=== PATIENT | female | born 1940 | race African-American/Black ===

== ENCOUNTER 2017-09-20 08:04 | Inpatient (IN) | payer MEDICARE ==
[2017-09-20] VITALS (9 sets, daily range): BP systolic 151–190; BP diastolic 67–91; PULSE 66–102; RESP 21–26; TEMP 94.8–100.6; O2SAT 93–95
[~2017-09-20] VITALS: Ht 167.6 cm; Wt 91.0 kg
[~2017-09-20 08:04] MED LIST: BACT800T5 PO; BRIM0.155 OP; CEPH500C3 PO; DORZ1SOL2 OU; DYAZ37.57 PO; FOSA70TA PO; LATA.005%O EACH EYE; MELO7.5T PO; NIFE60TA8 OR
[2017-09-20] MEDS ORDERED: SODIUM CHLORIDE 0.9% FLUSH 10 ML FLUSH IV FLUSH PRN ×2 (08:15→10:45)
--- NOTE | 2017-09-20 08:20 | PD ---
HPI Chief Complaint: Neuro Symptoms/ Deficits Time Seen by Provider: 08:11 Travel History International Travel<30 days: No Contact w/Intl Traveler<30days: No Traveled to known affect area: No History of Present Illness HPI 77-year-old female patient with previous history of hypertension, DVT, presents to the ER today brought in by EMS, apparently he had not been seen or heard from by family since Tuesday, and EMS got into her apartment, found her laying on the floor, unresponsive, apparently is arousable, facial asymmetry, disoriented, but able to respond to some questions. Patient is currently nonverbal in the ER but awake and alert, disoriented. Modifying Factors: None Associated Signs & Symptoms: Altered mental status, found on the floor Risk Factors: Elderly PFSH Past Medical History Cancer: Yes Diabetes: No Deep Vein Thrombosis: Yes (RIGHT LEG) Hepatitis: No Hiatal Hernia: No Hypertension: Yes Musculoskeletal: Yes (osteoperosis) Thyroid Disease: No ?: Not Past Surgical History Eye Surgery: Yes (bilateral eye cataract removal) Gynecologic Surgery: Yes (hysterectomy) Hysterectomy: Yes Pacemaker: No Other Surgery: Yes Social History Alcohol Use: No Tobacco Use: No Substance Use: No Allergies-Medications (Allergen,Severity, Reaction): Coded Allergies: No Known Allergies (Unverified Allergy, Unknown, 09/20/17) Reported Meds & Prescriptions Reported Meds & Active Scripts Active Reported Dorzolamide-Timolol Opth Drops 22.3-6.8 Mg/Ml Soln 1 Drop EACH EYE BID Brimonidine Opth Drops (Brimonidine Tartrate) 0.2% Soln 1 Drop EACH EYE Q12HR Nifedipine ER 24 HR (Nifedipine) 60 Mg Tab 60 Mg PO DAILY Fosamax (Alendronate Sodium) 70 Mg Tab 70 Mg PO WEEKLY Lisinopril 40 Mg Tab 40 Mg PO DAILY Latanoprost Opth Drops (Latanoprost) 0.005% Drops 1 Drop EACH EYE HS Refrigerate until opened. Eliquis (Apixaban) 5 Mg Tab 5 Mg PO BID Review of Systems ROS Limitations: Altered Mental Status Physical Exam Narrative GENERAL: Well-developed elderly -[place] female patient currently in moderate distress. Awake, nonverbal, disoriented. SKIN: Focused skin assessment warm/dry. HEAD: Atraumatic. Normocephalic. EYES: Pupils equal and round. No scleral icterus. No injection or drainage. ENT: No nasal bleeding or discharge. Mucous membranes pink and moist. NECK: Trachea midline. No JVD. CARDIOVASCULAR: Regular rate and rhythm. No murmur appreciated. RESPIRATORY: No accessory muscle use. Clear to auscultation. Breath sounds equal bilaterally. GASTROINTESTINAL: Abdomen soft, non-tender, nondistended. Hepatic and splenic margins not palpable. MUSCULOSKELETAL: No obvious deformities. No clubbing. No cyanosis. No edema. NEUROLOGICAL: Awake and alert, disoriented. Not following commands. PSYCHIATRIC: Disoriented, unable to evaluate Data Data Last Documented VS Vital Signs Date Time Temp Pulse Resp B/P (MAP) Pulse Ox O2 Delivery O2 Flow Rate FiO2 09/20/17 09:50 98.2 73 24 190/91 (124) 95 Room Air Orders Orders Electrocardiogram (09/20/17 08:11) Ammonia (09/20/17 08:11) Complete Blood Count With Diff (09/20/17 08:11) Comprehensive Metabolic Panel (09/20/17 08:11) Creatine Kinase (Cpk) (09/20/17 08:11) Prothrombin Time / Inr (Pt) (09/20/17 08:11) Act Partial Throm Time (Ptt) (09/20/17 08:11) Troponin I (09/20/17 08:11) Thyroid Stimulating Hormone (09/20/17 08:11) Urinalysis - C+S If Indicated (09/20/17 08:11) Lactic Acid Sepsis Protocol (09/20/17 08:11) Blood Culture (09/20/17 08:11) Chest, Single Ap (09/20/17 08:11) Ct Brain W/O Iv Contrast(Rout) (09/20/17 08:11) Blood Glucose (09/20/17 08:11) Ecg Monitoring (09/20/17 08:11) Iv Access Insert/Monitor (09/20/17 08:11) Oximetry (09/20/17 08:11) Urinary Catheter Insert/Apply (09/20/17 08:11) Sodium Chloride 0.9% Flush (Ns Flush) (09/20/17 08:15) Drug Screen, Random Urine (09/20/17 08:11) Alcohol (Ethanol) (09/20/17 08:11) Urine Culture (09/20/17 08:26) Sodium Chlorid 0.9% 500 Ml Inj (Ns 500 M (09/20/17 09:15) CKMB (09/20/17 08:26) CKMB% (09/20/17 08:26) Sodium Chlor 0.9% 1000 Ml Inj (Ns 1000 M (09/20/17 09:45) Aspirin Supp (Aspirin Supp) (09/20/17 09:45) Admit Order (Ed Use Only) (09/20/17 10:32) Labs Laboratory Tests Test 09/20/17 08:20 09/20/17 08:26 Lactic Acid Level 3.9 mmol/L Ammonia LESS THAN 10 MCMOL/L White Blood Count 13.7 TH/MM3 Red Blood Count 5.56 MIL/MM3 Hemoglobin 15.0 GM/DL Hematocrit 45.9 % Mean Corpuscular Volume 82.6 FL Mean Corpuscular Hemoglobin 27.0 PG Mean Corpuscular Hemoglobin Concent 32.7 % Red Cell Distribution Width 13.1 % Platelet Count 214 TH/MM3 Mean Platelet Volume 8.2 FL Neutrophils (%) (Auto) 85.0 % Lymphocytes (%) (Auto) 8.4 % Monocytes (%) (Auto) 5.6 % Eosinophils (%) (Auto) 0.0 % Basophils (%) (Auto) 1.0 % Neutrophils # (Auto) 11.6 TH/MM3 Lymphocytes # (Auto) 1.1 TH/MM3 Monocytes # (Auto) 0.8 TH/MM3 Eosinophils # (Auto) 0.0 TH/MM3 Basophils # (Auto) 0.1 TH/MM3 CBC Comment DIFF FINAL Differential Comment Prothrombin Time 11.2 SEC Prothromb Time International Ratio 1.1 RATIO Activated Partial Thromboplast Time 26.7 SEC Urine Color YELLOW Urine Turbidity CLEAR Urine pH 5.5 Urine Specific [place] 1.013 Urine Protein TRACE mg/dL Urine Glucose (UA) TRACE mg/dL Urine Ketones 10 mg/dL Urine Occult Blood SMALL Urine Nitrite NEG Urine Bilirubin NEG Urine Urobilinogen LESS THAN 2.0 MG/DL Urine Leukocyte Esterase NEG Urine RBC 5 /hpf Urine WBC LESS THAN 1 /hpf Urine Squamous Epithelial Cells <1 /hpf Urine Bacteria RARE /hpf Microscopic Urinalysis Comment CATH-CULTURE IND Blood Urea Nitrogen 18 MG/DL Creatinine 0.98 MG/DL Random Glucose 165 MG/DL Total Protein 8.5 GM/DL Albumin 4.0 GM/DL Calcium Level 10.2 MG/DL Alkaline Phosphatase 105 U/L Aspartate Amino Transf (AST/SGOT) 35 U/L Alanine Aminotransferase (ALT/SGPT) 18 U/L Total Bilirubin 0.5 MG/DL Sodium Level 141 MEQ/L Potassium Level 3.9 MEQ/L Chloride Level 108 MEQ/L Carbon Dioxide Level 21.2 MEQ/L Anion Gap 12 MEQ/L Estimat Glomerular Filtration Rate 66 ML/MIN Total Creatine Kinase 1125 U/L Creatine Kinase MB 17.1 NG/ML Creatine Kinase MB % 1.5 % Troponin I 0.44 NG/ML Thyroid Stimulating Hormone 3rd Gen 0.432 uIU/ML Urine Opiates Screen NEG Urine Barbiturates Screen NEG Urine Amphetamines Screen NEG Urine Benzodiazepines Screen NEG Urine Cocaine Screen NEG Urine Cannabinoids Screen NEG Ethyl Alcohol Level 4 MG/DL MDM Medical Decision Making Medical Screen Exam Complete: Yes Emergency Medical Condition: Yes Medical Record Reviewed: Yes Interpretation(s) Laboratory Tests Test 09/20/17 08:20 09/20/17 08:26 Lactic Acid Level 3.9 mmol/L (0.4-2.0) Ammonia LESS THAN 10 MCMOL/L White Blood Count 13.7 TH/MM3 (4.0-11.0) Red Blood Count 5.56 MIL/MM3 (4.00-5.30) Neutrophils (%) (Auto) 85.0 % (16.0-70.0) Lymphocytes (%) (Auto) 8.4 % (9.0-44.0) Neutrophils # (Auto) 11.6 TH/MM3 (1.8-7.7) Urine Ketones 10 mg/dL (NEG) Urine Occult Blood SMALL (NEG) Urine RBC 5 /hpf (0-3) Urine Bacteria RARE /hpf (NONE) Random Glucose 165 MG/DL (74-106) Total Protein 8.5 GM/DL (6.4-8.2) Calcium Level 10.2 MG/DL (8.5-10.1) Chloride Level 108 MEQ/L (98-107) Estimat Glomerular Filtration Rate 66 ML/MIN (>89) Total Creatine Kinase 1125 U/L (26-192) Creatine Kinase MB 17.1 NG/ML (0.5-3.6) Troponin I 0.44 NG/ML (0.02-0.05) Last [address] 09/20/17810 Signed Impressions: Service Date/Time: Wednesday, September 20, 2017 08:41 - CONCLUSION: 1. Findings consistent with subacute left MCA territory infarction with hyperdense left MCA suggesting left MCA thrombus. No significant hemorrhage or herniation at this time. Clem Arreguin MD Chest X-Ray 09/20/17810 Signed Impressions: Service Date/Time: Wednesday, September 20, 2017 08:32 - CONCLUSION: 1. Probable hiatal hernia. 2. No acute cardiopulmonary disease. Clem Arreguin MD Differential Diagnosis Altered mental status, found down: ICH versus CVA versus metabolic issues versus dehydration versus sepsis Narrative Course Patient's dentures were removed in the ER. She does have an intact gag reflex. However, at this point we would maintain n.p.o. status until swallowing study can be done. CAT scan shows signs of a left MCA infarct which is subacute. IV fluids and as needed aspirin was given. Lab work shows elevated lactate levels , possibly secondary to dehydration, white count is elevated. However, patient' s not having any fevers. Case was discussed with Dr. Barnes for admission for further treatment. Case was also discussed with Dr. Mcgregor of neurology who states that she will consult on the case. Patient is well beyond TPA window. Aggregate critical care time was 35 minutes. Time to perform other separately billable procedures was not included in the critical care time. My time did not include minutes spent treating any other patients simultaneously or on activities that did not directly contribute to the patient's treatment. The services I provided to this patient were to treat and/or prevent clinically significant deterioration that could result in: ICH, herniation, I provided critical care services requiring my management, as noted below: Chart data review, documentation time, medication orders and management, vital sign assessments/reviewing monitor data, ordering and reviewing lab tests, ordering and interpreting/reviewing x-rays and diagnostic studies, care of the patient and discussion of the patient with the admitting physicians. Diagnosis Primary Impression: CVA (cerebral vascular accident) Additional Impression: Rhabdomyolysis Admitting Information Admitting Physician Requests: Admit Meño Lopez MD Sep 20, 2017 08:20
[2017-09-20 08:45] LABS: AUTOMATED NEUTROPHIL # 11.6 TH/MM3 (1.8-7.7); BASOPHIL # 0.1 TH/MM3 (0-0.2); HEMATOCRIT 45.9 % (35.0-46.0); LYMPH % 8.4 % (9.0-44.0); LYMPHOCYTE # 1.1 TH/MM3 (1.0-4.8); MEAN CELL VOLUME 82.6 FL (80.0-100.0); MEAN CORPUSCULAR HGB CONC 32.7 % (32.0-36.0); MEAN PLATELET VOLUME 8.2 FL (7.0-11.0); MONO % 5.6 % (0.0-8.0); MONOCYTE # 0.8 TH/MM3 (0-0.9); PLATELET COUNT 214 TH/MM3 (150-450); RED BLOOD COUNT 5.56 MIL/MM3 (4.00-5.30); RED CELL DISTRIBUTION WIDTH 13.1 % (11.6-17.2); WHITE BLOOD COUNT 13.7 TH/MM3 (4.0-11.0)
[2017-09-20 08:51] LABS: BACTERIA, URINE RARE /hpf; BILIRUBIN, URINE NEG (NEG); BLOOD, URINE SMALL (NEG); GLUCOSE,URINE TRACE mg/dL (NEG); KETONE, URINE 10 mg/dL (NEG); NITRITE,URINE NEG (NEG); PH, URINE 5.5 (5.0-8.5); SQUAMOUS EPITHELIAL CELL URINE <1 /hpf (0-5); URINE COLOR YELLOW (YELLW/STRAW); URINE LEUKOCYTE ESTERASE NEG (NEG)
--- NOTE | 2017-09-20 08:52 | RADRPT ---
EXAM DATE/TIME: 09/20/2017 08:32 [facility] COMPARISON: No previous studies available for comparison. INDICATIONS : Syncope. MEDICAL HISTORY : None. SURGICAL HISTORY : None. ENCOUNTER: Initial ACUITY: 1 day PAIN SCORE: Non-responsive. LOCATION: Bilateral chest FINDINGS: Single view of the chest demonstrates no significant focal pleural or parenchymal opacities. Retrocar diac opacity likely reflects a hiatal hernia. The cardiomediastinal contours are unremarkable. [place] us structures are intact. CONCLUSION: 1. Probable hiatal hernia. 2. No acute cardiopulmonary disease. Clem Arreguin MD on September 20, 2017 at 8:50 Board Certified Radiologist. This report was verified electronically.
[2017-09-20 08:55] LABS: INTERNATIONAL NORMALIZED RATIO 1.1 RATIO; PROTHROMBIN TIME - PATIENT 11.2 SEC (9.8-11.6)
--- NOTE | 2017-09-20 09:03 | RADRPT ---
EXAM DATE/TIME: 09/20/2017 08:41 [facility] COMPARISON: No previous studies available for comparison. INDICATIONS : Found on floor, right side weakness, left side gaze RADIATION DOSE: 56.35 CTDIvol (mGy) MEDICAL HISTORY : Hypertension. SURGICAL HISTORY : Hysterectomy. ENCOUNTER: Initial ACUITY: 1 day PAIN SCALE: Non-responsive LOCATION: cranial TECHNIQUE: Multiple contiguous axial images were obtained of the head. Using automated exposure control and adj ustment of the mA and/or kV according to patient size, radiation dose was kept as low as reasonably a chievable to obtain optimal diagnostic quality images. DICOM format image data is available electro nically for review and comparison. FINDINGS: CEREBRUM: Examination is abnormal. There is loss of henderson-white matter differentiation in the left frontoparieta l mid to high convexities. There also are decreased densities in the left basal ganglia including the left caudate head. No significant hemorrhage or mass effect. The left MCA is hyperdense POSTERIOR FOSSA: The cerebellum and brainstem are intact. The 4th ventricle is midline. The cerebellopontine angle i s unremarkable. EXTRACRANIAL: The visualized portion of the orbits is intact. Partially imaged mucoperiosteal thickening and fluid in the left maxillary sinus. SKULL: The calvaria is intact. No evidence of skull fracture. CONCLUSION: 1. Findings consistent with subacute left MCA territory infarction with hyperdense left MCA suggestin g left MCA thrombus. No significant hemorrhage or herniation at this time. Clem Arreguin MD on September 20, 2017 at 8:52 Board Certified Radiologist. This report was verified electronically.
[2017-09-20 09:05] LABS: LACTIC ACID SEPSIS PROTOCOL 3.9 mmol/L (0.4-2.0)
[2017-09-20 09:09] LABS: AST (GOT) 35 U/L (15-37); BICARBONATE 21.2 MEQ/L (21.0-32.0); BLOOD UREA NITROGEN 18 MG/DL (7-18); CALCIUM 10.2 MG/DL (8.5-10.1); CHLORIDE 108 MEQ/L (98-107); CREATININE 0.98 MG/DL (0.50-1.00); GLOMERULAR FILTRATION RATE 66 ML/MIN (>89); GLUCOSE,RANDOM 165 MG/DL (74-106); SODIUM (NA) 141 MEQ/L (136-145)
[2017-09-20] MEDS ORDERED: SODIUM CHLORID 0.9% 500 ML INJ 500 ML IV ONE (09:15)
[2017-09-20 09:23] LABS: ALKALINE PHOSPHATASE 105 U/L (45-117); ALT (GPT) 18 U/L (10-53); TOTAL BILIRUBIN ADULT 0.5 MG/DL (0.2-1.0); TOTAL PROTEIN 8.5 GM/DL (6.4-8.2); TROPONIN I 0.44 NG/ML (0.02-0.05)
[2017-09-20] MEDS ORDERED: ASPIRIN 300 MG SUPP RECTAL ONE (09:45)
[2017-09-20] MEDS ORDERED: SODIUM CHLOR 0.9% 1000 ML INJ 1,000 ML IV ONE (09:45)
[2017-09-20] MEDS ORDERED: LATA0.002 EACH EYE (10:11)
[2017-09-20] MEDS ORDERED: APIX5TAB PO (10:11)
[2017-09-20] MEDS ORDERED: NIFE60TA58 PO (10:28)
[2017-09-20] MEDS ORDERED: FOSA70TA PO (10:28)
[2017-09-20] MEDS ORDERED: BRIM0.2S4 EACH EYE (10:28)
[2017-09-20] MEDS ORDERED: DORZ2SOL15 EACH EYE (10:28)
[2017-09-20] MEDS ORDERED: LISI40TA PO (10:28)
[2017-09-20] MEDS ORDERED: CHLORHEXIDINE GLUCONATE 2 % 1 PACK (2 CLOTHS) TOP PRN (10:45)
[2017-09-20] MEDS ORDERED: MISCELLANEOUS NURSING INFORMATION XX SCH (10:45)
[2017-09-20] MEDS: SODIUM CHLOR 0.9% 1000 ML INJ 1,000 ML IV SCH (12:54)
[2017-09-20] MEDS: ENOXAPARIN SODIUM 40 MG/0.4 ML SYRINGE SQ SCH (12:55)
--- NOTE | 2017-09-20 14:39 | HHI.HP ---
HPI Service Critical Care Medicine Primary Care Physician Nelsy Allen MD Admission Diagnosis Subacute CVA/rhabdomyolysis Diagnosis: Chief Complaint: Altered mental status Travel History International Travel<30 Days: No Contact w/Intl Traveler <30 Da: No Traveled to Known Affected Are: No History of Present Illness HPI 77-year-old female with a medical history significant for hypertension, DVT who was found laying on the floor unresponsive at home with facial asymmetry though was minimally arousable. She was last known to be okay the night before presentation. Patient was found to have right-sided weakness. Head CT done in the ER revealed left MCA territory ischemic infarct which appeared to be subacute in nature. Patient was accepted for admission by critical care medicine service. She was not felt to be a candidate for TPA or IR intervention due to unknown time of onset of symptoms. When I evaluated patient in the ER she was laying in the ER stretcher, opening her eyes to command however nonverbal. PFSH Past Medical History Cancer: Yes Diabetes: No Deep Vein Thrombosis: Yes (RIGHT LEG) Hepatitis: No Hiatal Hernia: No Hypertension: Yes Musculoskeletal: Yes (osteoporosis) Thyroid Disease: No ?: Not Past Surgical History Eye Surgery: Yes (bilateral eye cataract removal) Gynecologic Surgery: Yes (hysterectomy) Hysterectomy: Yes Pacemaker: No Other Surgery: Yes Social History Alcohol Use: No Tobacco Use: No Substance Use: No Allergies-Medications (Allergen,Severity, Reaction): Coded Allergies: No Known Allergies (Unverified Allergy, Unknown, 09/20/17) Reported Meds & Prescriptions Reported Meds & Active Scripts Active Reported Dorzolamide-Timolol Opth Drops 22.3-6.8 Mg/Ml Soln 1 Drop EACH EYE BID Brimonidine Opth Drops (Brimonidine Tartrate) 0.2% Soln 1 Drop EACH EYE Q12HR Nifedipine ER 24 HR (Nifedipine) 60 Mg Tab 60 Mg PO DAILY Fosamax (Alendronate Sodium) 70 Mg Tab 70 Mg PO WEEKLY Lisinopril 40 Mg Tab 40 Mg PO DAILY Latanoprost Opth Drops (Latanoprost) 0.005% Drops 1 Drop EACH EYE HS Refrigerate until opened. Eliquis (Apixaban) 5 Mg Tab 5 Mg PO BID Physical Exam Vital Signs Vital Signs Date Time Temp Pulse Resp B/P (MAP) Pulse Ox O2 Delivery O2 Flow Rate FiO2 09/20/17 14:00 79 21 157/71 (99) 94 Room Air 09/20/17 11:55 80 24 151/67 (95) 93 Room Air 09/20/17 09:50 98.2 73 24 190/91 (124) 95 Room Air 09/20/17 08:10 94.8 102 23 182/82 (115) 95 Room Air Physical Exam HEENT/Neuro: No pallor or icterus, tongue moist, pupils 3 mm bilaterally reacting actively to light, drowsy, opens eyes slightly to command, squeezes fingers with the right hand. Nonverbal, not moving right upper extremity with grade 0 pallor. Does move left upper extremity. Right lower extremity flaccid. Increased tone noted in left lower extremity. Chest/pulmonary: CTA bilaterally Cardiovascular: S1-S2 regular no gallop or murmur GI/abdomen: Soft, nontender, bowel sounds present Extremities: Warm bilaterally, no edema Laboratory Laboratory Tests Test 09/20/17 08:20 09/20/17 08:26 09/20/17 11:23 Lactic Acid Level 3.9 2.5 Ammonia LESS THAN 10 White Blood Count 13.7 Red Blood Count 5.56 Hemoglobin 15.0 Hematocrit 45.9 Mean Corpuscular Volume 82.6 Mean Corpuscular Hemoglobin 27.0 Mean Corpuscular Hemoglobin Concent 32.7 Red Cell Distribution Width 13.1 Platelet Count 214 Mean Platelet Volume 8.2 Neutrophils (%) (Auto) 85.0 Lymphocytes (%) (Auto) 8.4 Monocytes (%) (Auto) 5.6 Eosinophils (%) (Auto) 0.0 Basophils (%) (Auto) 1.0 Neutrophils # (Auto) 11.6 Lymphocytes # (Auto) 1.1 Monocytes # (Auto) 0.8 Eosinophils # (Auto) 0.0 Basophils # (Auto) 0.1 CBC Comment DIFF FINAL Differential Comment Prothrombin Time 11.2 Prothromb Time International Ratio 1.1 Activated Partial Thromboplast Time 26.7 Urine Color YELLOW Urine Turbidity CLEAR Urine pH 5.5 Urine Specific [place] 1.013 Urine Protein TRACE Urine Glucose (UA) TRACE Urine Ketones 10 Urine Occult Blood SMALL Urine Nitrite NEG Urine Bilirubin NEG Urine Urobilinogen LESS THAN 2.0 Urine Leukocyte Esterase NEG Urine RBC 5 Urine WBC LESS THAN 1 Urine Squamous Epithelial Cells <1 Urine Bacteria RARE Microscopic Urinalysis Comment CATH-CULTURE IND Blood Urea Nitrogen 18 Creatinine 0.98 Random Glucose 165 Total Protein 8.5 Albumin 4.0 Calcium Level 10.2 Alkaline Phosphatase 105 Aspartate Amino Transf (AST/SGOT) 35 Alanine Aminotransferase (ALT/SGPT) 18 Total Bilirubin 0.5 Sodium Level 141 Potassium Level 3.9 Chloride Level 108 Carbon Dioxide Level 21.2 Anion Gap 12 Estimat Glomerular Filtration Rate 66 Total Creatine Kinase 1125 Creatine Kinase MB 17.1 Creatine Kinase MB % 1.5 Troponin I 0.44 Thyroid Stimulating Hormone 3rd Gen 0.432 Urine Opiates Screen NEG Urine Barbiturates Screen NEG Urine Amphetamines Screen NEG Urine Benzodiazepines Screen NEG Urine Cocaine Screen NEG Urine Cannabinoids Screen NEG Ethyl Alcohol Level 4 Date/Time Source Procedure Growth Status 09/20/17 08:26 Blood Peripheral Aerobic Blood Culture Pending Received 09/20/17 08:26 Blood Peripheral Anaerobic Blood Culture Pending Received 09/20/17 08:26 Urine Catheterized Urine Urine Culture Pending Received Result Diagram: 09/20/1782509/20/17825 Imaging Last Impressions Head CT 09/20/17810 Signed Impressions: Service Date/Time: Wednesday, September 20, 2017 08:41 - CONCLUSION: 1. Findings consistent with subacute left MCA territory infarction with hyperdense left MCA suggesting left MCA thrombus. No significant hemorrhage or herniation at this time. Clem Arreguin MD Chest X-Ray 09/20/17810 Signed Impressions: Service Date/Time: Wednesday, September 20, 2017 08:32 - CONCLUSION: 1. Probable hiatal hernia. 2. No acute cardiopulmonary disease. Clem Arreguin MD Caprini VTE Risk Assessment Caprini VTE Risk Assessment: Mod/High Risk (score >= 2) Caprini Risk Assessment Model Point Value = 1 Point Value = 2 Point Value = 3 Point Value = 5 Age 41-60 Minor surgery BMI > 25 kg/m2 Swollen legs Varicose veins or History of unexplained or recurrent spontaneous Oral contraceptives or hormone replacement Sepsis (< 1 month) Serious lung disease, including pneumonia (< 1 month) Abnormal pulmonary function Acute myocardial infarction Congestive heart failure (< 1 month) History of inflammatory bowel disease Medical patient at bed rest Age 61-74 Arthroscopic surgery Major open surgery (> 45 min) Laparoscopic surgery (> 45 min) Malignancy Confined to bed (> 72 hours) Immobilizing plaster cast Central venous access Age >= 75 History of VTE Family history of VTE Factor V Leiden Prothrombin [id number] Lupus anticoagulant Anticardiolipin antibodies Elevated serum homocysteine Heparin-induced thrombocytopenia Other congenital or acquired thrombophilia Stroke (< 1 month) Elective arthroplasty Hip, pelvis, or leg fracture Acute spinal cord injury (< 1 month) Prophylaxis Regimen Total Risk Factor Score Risk Level Prophylaxis Regimen 0-1 Low Early ambulation 2 Moderate Order ONE of the following: *Sequential Compression Device (SCD) *Heparin 5000 units SQ BID 3-4 Higher Order ONE of the following medications: *Heparin 5000 units SQ TID *Enoxaparin/Lovenox 40 mg SQ daily (WT < 150 kg, CrCl > 30 mL/min) *Enoxaparin/Lovenox 30 mg SQ daily (WT < 150 kg, CrCl > 10-29 mL/min) *Enoxaparin/Lovenox 30 mg SQ BID (WT < 150 kg, CrCl > 30 mL/min) AND/OR *Sequential Compression Device (SCD) 5 or more Highest Order ONE of the following medications: *Heparin 5000 units SQ TID (Preferred with Epidurals) *Enoxaparin/Lovenox 40 mg SQ daily (WT < 150 kg, CrCl > 30 mL/min) *Enoxaparin/Lovenox 30 mg SQ daily (WT < 150 kg, CrCl > 10-29 mL/min) *Enoxaparin/Lovenox 30 mg SQ BID (WT < 150 kg, CrCl > 30 mL/min) AND *Sequential Compression Device (SCD) Assessment and Plan Assessment and Plan 77-year-old female with: Encephalopathy Ischemic stroke involving left MCA territory Rhabdomyolysis History of DVT Hypertension Plan: Neuro: Follow neuro status. Protecting airway currently who may require intubation if neurologic status worsens. Obtain MRI MRA brain for further evaluation of stroke. Neurology consult requested. Permissive hypertension in view of ischemic stroke. Will use labetalol as needed for systolic blood pressure greater than 210mm Hg, ASA 300mg rectally daily Cardiovascular: IV hydration, watch for hypotension. Permissive hypertension for ischemic stroke as above. Pulmonary: Supplemental O2, bronchodilators as needed. May require intubation for airway protection if neurologic status worsens. GI/liver: N.p.o. for now. May require NG tube/Dobbhoff for feeding/meds. Renal/: IV hydration, strict intake output, monitor and replete electrolytes, follow BN creatinine. Follow CPK ID: No indication for antibiotics at this time. Heme: On anticoagulation with Eliquis at home which is on hold currently until evaluation by neurology. Resume anticoagulation if okay with neurology. Prophylaxis: Lovenox for DVT prophylaxis, Pepcid for GI prophylaxis. Condition critical Time spent on critical care excluding procedures 45 minutes Cy Longoria MD Sep 20, 2017 14:39
--- NOTE | 2017-09-20 15:06 | MB ---
cc: Jazzmine Mcgregor MD DATE: 09/20/2017 REASON FOR CONSULTATION: Stroke. HISTORY OF PRESENT ILLNESS: This is a 77-year-old woman with history of hypertension, DVT, per daughter compliant with her anticoagulant of Eliquis, comes in because she had not been heard from the family since at least Tuesday. They found her lying on the floor unresponsive, arousable, with right-sided weakness. PAST MEDICAL HISTORY: Per chart notes and is not clear what of cancer, DVT right leg, osteoporosis. PAST SURGICAL HISTORY: Eye surgery, cataracts bilaterally removed, hysterectomy. SOCIAL HISTORY: Does not smoke, drink or use any illicit substances. ALLERGIES: NONE REPORTED. HOME MEDICINES: 1. Dorzolamide. 2. Timolol drops. 3. Brimonidine drops. 4. Nifedipine. 5. Fosamax. 6. Lisinopril. 7. Latanoprost. 8. Eliquis 5 mg b.i.d. PHYSICAL EXAMINATION: VITAL SIGNS: Temperature is 98.2, pulse 79, respiratory rate 21, blood pressure 157/71, saturating at 94% on room air. NECK: Supple, no bruits. HEART: Regular. NEUROLOGIC: She keeps her eyes closed but awakens with sternal rub. Follows simple commands with her left hand. Squeezes, lets go, wiggles her fingers. She is nonverbal. There may be a right facial asymmetry. She has a left gaze, as well as a left head turn. Decreased tone on right side. Minimal withdrawal of the right leg. No movement in the right arm. Right toe is upgoing. Sensory left side is intact. LABORATORY DATA: White count 13.7; platelets 214,000. Coag panel normal. Chemistries: Lactic acid 2.5. CK 1125. Troponin 0.44. GFR 66. TSH 0.432. Urine small occult blood. Culture is not indicated. Toxicology is negative. IMAGING STUDIES: Chest x-ray, possible hiatal hernia, no acute cardiopulmonary disease. CT head shows subacute left MCA infarct with hyperdense left MCA sign. No hemorrhage. No herniation noted. IMPRESSION: Left middle cerebral artery stroke. RECOMMENDATIONS: At this point in time are to do a complete stroke workup. Continue to monitor her neuro status closely. Recommend a repeat CT tomorrow morning stat. Should there be any change, she would need to be in an ICU setting. Continue close neurologic surveillance. We will get a carotid ultrasound, 2-D echo as well as MRI/MRA. If there is airway compromise, she will need to be intubated, and she will need a PT, OT, and speech therapy assessment. Keep her normal saline 70 mL an hour. Permissible hypertension. Possibly with this DVT, she may need another ultrasound of her lower extremity. As stroke looks fairly large, I am worried about putting her on anticoagulant, but if absolutely necessary, we could put her on very dose, no bolus heparin with careful watch of PTT and neuro status exam. Continue current care. MD MARVIN Avalos/PANCHO , 02:39 PM , 03:05 PM
--- NOTE | 2017-09-20 16:41 | RADRPT ---
EXAM DATE/TIME: 09/20/2017 16:00 [facility] COMPARISON: MRI BRAIN W/O CONTRAST, September 20, 2017, 16:00. CT BRAIN W/O CONTRAST, September 20, 2017, 8:41. INDICATIONS : Aphasia. MEDICAL HISTORY : Hypertension. SURGICAL HISTORY : Hysterectomy. ENCOUNTER: Initial ACUITY: 1 day PAIN SCORE: Nonresponsive. LOCATION: Head Please note a normal MRA of the brain does not entirely exclude the possibility of a small aneurysm, nor the possibility of distal intracranial vessel disease. TECHNIQUE: 3D time of flight MRA was performed. Source images, multiplanar STS MIP, and 3D volume MIP reconstru ctions were reviewed. FINDINGS: There is excellent visualization of the major intracranial arteries out to the second-order branch ve ssels. Loss of flow related enhancement is identified in the petrous and intracranial segment of the left in ternal carotid artery. No appreciable flow is identified in the left middle and anterior cerebral art stephanie distributions. The right cerebral circulation and vertebral basilar circulation remain intact. CONCLUSION: 1. Distal left ICA occlusion extending intracranially and involving the left anterior and middle cere bral arteries. 2. Intact right cerebral and vertebrobasilar circulation. Pedro Reveles MD on September 20, 2017 at 16:34 Board Certified Radiologist. This report was verified electronically.
--- NOTE | 2017-09-20 16:46 | RADRPT ---
EXAM DATE/TIME: 09/20/2017 16:00 [facility] COMPARISON: MRA BRAIN W/O CONTRAST, September 20, 2017, 16:00. INDICATIONS : Aphasia. MEDICAL HISTORY : Hypertension. SURGICAL HISTORY : Hysterectomy. ENCOUNTER: Initial ACUITY: 1 day PAIN SCORE: Nonresponsive. LOCATION: head TECHNIQUE: Multiplanar, multisequence MRI of the brain was performed without contrast. FINDINGS: A large area of restricted diffusion is identified in the left cerebral hemisphere involving the fron nabil, parietal and insular lobes. There is partial sparing of the left temporal lobe. The area restric cindy diffusion corresponds to the anterior and middle cerebral artery distributions. At least three qu arters of the middle cerebral artery distribution is affected. Cortical venous stasis is identified a long the cerebral hemisphere. There is no evidence of acute hemorrhage. The right cerebral hemisphere, brainstem and cerebellum remain unremarkable without evidence of restr icted diffusion, hemorrhage, mass or edema. CONCLUSION: 1. Large evolving infarct in the anterior and middle cerebral artery distributions as a consequence o f distal left ICA occlusion extending into the anterior and middle cerebral arteries. 2. No evidence of associated hemorrhage or significant mass effect. 3. Unremarkable right cerebral hemisphere, brainstem or cerebellum. Pedro Reveles MD on September 20, 2017 at 16:39 Board Certified Radiologist. This report was verified electronically.
[2017-09-20] MEDS: CHLORHEXIDINE GLUCONATE 2 % 1 PACK (2 CLOTHS) TOP SCH (19:37)
[2017-09-20] MEDS: FAMOTIDINE 20 MG/2 ML VIAL IV PUSH SCH (20:00)
[2017-09-20] MEDS: SODIUM CHLORIDE 0.9% FLUSH 10 ML FLUSH IV FLUSH SCH (20:00)
[2017-09-21] VITALS (12 sets, daily range): BP systolic 178–205; BP diastolic 74–82; PULSE 55–76; RESP 22–36; TEMP 98–100.6; O2SAT 94–97
[2017-09-21] MEDS: SODIUM CHLOR 0.9% 1000 ML INJ 1,000 ML IV SCH ×2 (01:16→12:46)
[2017-09-21 07:02] LABS: AUTOMATED NEUTROPHIL # 10.1 TH/MM3 (1.8-7.7); BASOPHIL # 0.1 TH/MM3 (0-0.2); BASOPHIL % 0.9 % (0.0-2.0); EOSINOPHIL # 0.1 TH/MM3 (0-0.4); EOSINOPHIL % 0.4 % (0.0-4.0); HEMATOCRIT 47.8 % (35.0-46.0); HEMOGLOBIN 15.2 GM/DL (11.6-15.3); LYMPH % 12.9 % (9.0-44.0); LYMPHOCYTE # 1.7 TH/MM3 (1.0-4.8); MEAN CELL VOLUME 84.4 FL (80.0-100.0); MEAN CORPUSCULAR HEMOGLOBIN 26.8 PG (27.0-34.0); MEAN CORPUSCULAR HGB CONC 31.8 % (32.0-36.0); MEAN PLATELET VOLUME 8.7 FL (7.0-11.0); MONO % 9.1 % (0.0-8.0); MONOCYTE # 1.2 TH/MM3 (0-0.9); NEUT % 76.7 % (16.0-70.0); PLATELET COUNT 182 TH/MM3 (150-450); RED BLOOD COUNT 5.67 MIL/MM3 (4.00-5.30); WHITE BLOOD COUNT 13.1 TH/MM3 (4.0-11.0)
[2017-09-21 07:45] LABS: ALBUMIN 3.4 GM/DL (3.4-5.0); ALKALINE PHOSPHATASE 88 U/L (45-117); ALT (GPT) 23 U/L (10-53); AST (GOT) 54 U/L (15-37); BLOOD UREA NITROGEN 15 MG/DL (7-18); CALCIUM 9.2 MG/DL (8.5-10.1); CHLORIDE 113 MEQ/L (98-107); CREATININE 0.82 MG/DL (0.50-1.00); GLOMERULAR FILTRATION RATE 81 ML/MIN (>89); GLUCOSE,RANDOM 109 MG/DL (74-106); PHOSPHORUS 2.1 MG/DL (2.5-4.9); SODIUM (NA) 143 MEQ/L (136-145); TOTAL BILIRUBIN ADULT 0.5 MG/DL (0.2-1.0); TOTAL PROTEIN 7.3 GM/DL (6.4-8.2)
[2017-09-21] MEDS: SODIUM CHLORIDE 0.9% FLUSH 10 ML FLUSH IV FLUSH SCH ×2 (09:00→21:00)
[2017-09-21] MEDS: FAMOTIDINE 20 MG/2 ML VIAL IV PUSH SCH ×2 (10:29→21:40)
[2017-09-21] MEDS: ASPIRIN 300 MG SUPP RECTAL SCH (10:29)
--- NOTE | 2017-09-21 10:33 | RADRPT ---
EXAM DATE/TIME: 09/21/2017 09:37 [facility] COMPARISON: No previous studies available for comparison. INDICATIONS : Ischemic stroke involving left MCA territory. MEDICAL HISTORY : Hypertension. Deep venous thrombosis. Osteoporosis. Rhabdomyolysis. Encephalopathy. SURGICAL HISTORY : Hysterectomy. Bilateral cataract extraction. ENCOUNTER: Initial ACUITY: 1 day PAIN SCORE: Nonresponsive. LOCATION: Bilateral neck PEAK SYSTOLIC VELOCITIES (cm/sec): ICA/CCA RATIO: Right: 1.0 Left: 0.6 ICA: Right: 113 Left: 61 CCA: Right: 117 Left: 106 ECA: Right: 109 Left: 173 VERTEBRAL: Right: 44 antegrade Left: 98 antegrade Elevated flow velocities and ICA/CCA ratios have been found to correlate with increased degrees of vessel stenosis, calculated as percentage of diameter relative to a normal segment of distal ICA/CCA FINDINGS: RIGHT CAROTID: No significant stenosis is visualized. The waveforms are within normal limits. LEFT CAROTID: No significant stenosis is visualized. The waveforms are within normal limits. VERTEBRAL ARTERIES: Antegrade flow is seen in both vertebral arteries. MISCELLANEOUS: None. CONCLUSION: Limited exam by patient habitus. Negative for hemodynamically significant stenosis. Alin Richard MD FACR on September 21, 2017 at 10:30 Board Certified Radiologist. This report was verified electronically.
--- NOTE | 2017-09-21 11:44 | HHI.PR ---
Subjective Remarks no new changes s/p mri and cus. pending repeat ct brain and echo results. Objective Vital Signs Date Time Temp Pulse Resp B/P (MAP) Pulse Ox O2 Delivery O2 Flow Rate FiO2 09/21/17 07:00 96 Room Air 09/21/17 06:00 64 09/21/17 04:00 99.0 60 22 186/78 (114) 94 09/21/17 04:00 60 09/21/17 02:00 70 09/21/17 00:00 70 09/21/17 00:00 99.9 70 26 185/78 (113) 95 09/20/17 22:00 66 09/20/17 20:00 76 09/20/17 20:00 100.6 76 24 178/73 (108) 95 09/20/17 19:00 95 Room Air 21 09/20/17 18:00 74 09/20/17 17:00 68 09/20/17 17:00 100.6 68 26 178/74 (108) 94 09/20/17 14:45 73 09/20/17 14:45 100.0 73 22 166/70 (102) 94 09/20/17 14:00 79 21 157/71 (99) 94 Room Air 09/20/17 14:00 09/20/17 11:55 80 24 151/67 (95) 93 Room Air I/O 09/20/17 09/20/17 09/20/17 09/21/17 09/21/17 09/21/17 07:00 15:00 23:00 07:00 15:00 23:00 Intake Total 813 ml Output Total 850 ml 400 ml 375 ml Balance -850 ml -400 ml 438 ml Intake IV Total 813 ml Output Urine Total 850 ml 400 ml 375 ml # Voids 0 # Bowel Movements 0 0 Result Diagram: 09/21/17 0529 09/21/17 0529 Imaging mri brain c/w large left mca infarct mra c/w left ica occlusion involving left ant and mca branches. cus neg echo-p ct =p Objective Remarks somnolent minimally arousable head and eyes turnes to left pupils 3mm-2mm. left side intact flaccid right right toe upgoing Assessment and Plan Assessment and Plan large left mca infarct -cont ac -d/w family the next 48hrs critical monitor ct for shift mass effect bleed may need intubation may need peg tube pt-ot st [facility] fluids Jazzmine Mcgregor MD Sep 21, 2017 11:44
[2017-09-21] MEDS: ENOXAPARIN SODIUM 40 MG/0.4 ML SYRINGE SQ SCH (12:46)
--- NOTE | 2017-09-21 14:51 | HHI.CCPN ---
Subjective Remarks/Hospital Course 09/20: 77-year-old female with a medical history significant for hypertension, DVT who was found laying on the floor unresponsive at home with facial asymmetry though was minimally arousable. She was last known to be okay the night before presentation. Patient was found to have right-sided weakness. Head CT done in the ER revealed left MCA territory ischemic infarct which appeared to be subacute in nature. Patient was accepted for admission by critical care medicine service. She was not felt to be a candidate for TPA or IR intervention due to unknown time of onset of symptoms. When I evaluated patient in the ER she was laying in the ER stretcher, opening her eyes to command however nonverbal. 09/21: Remains encephalopathic, arousable. Withdraws both lower extremities and upper extremities to pain. Objective Vital Signs Date Time Temp Pulse Resp B/P (MAP) Pulse Ox O2 Delivery O2 Flow Rate FiO2 09/21/17 10:00 58 09/21/17 08:00 98.0 24 178/74 (108) 97 09/21/17 07:00 Room Air 09/20/17 19:00 21 Intake and Output 09/21/17 09/21/17 09/22/17 08:00 16:00 00:00 Intake Total 813 ml Output Total 375 ml Balance 438 ml Result Diagram: 09/21/17 0529 09/21/17 0529 Imaging Last Impressions Carotid Artery Ultrasound 09/21/17 0000 Signed Impressions: Service Date/Time: Thursday, September 21, 2017 09:37 - CONCLUSION: Limited exam by patient habitus. Negative for hemodynamically significant stenosis. Alin Richard MD FACR Head CT 09/20/17810 Signed Impressions: Service Date/Time: Wednesday, September 20, 2017 08:41 - CONCLUSION: 1. Findings consistent with subacute left MCA territory infarction with hyperdense left MCA suggesting left MCA thrombus. No significant hemorrhage or herniation at this time. Clem Arreguin MD Chest X-Ray 09/20/17810 Signed Impressions: Service Date/Time: Wednesday, September 20, 2017 08:32 - CONCLUSION: 1. Probable hiatal hernia. 2. No acute cardiopulmonary disease. Clem Arreguin MD Head Magnetic Resonance Angiography 09/20/17 0000 Signed Impressions: Service Date/Time: Wednesday, September 20, 2017 16:00 - CONCLUSION: 1. Distal left ICA occlusion extending intracranially and involving the left anterior and middle cerebral arteries. 2. Intact right cerebral and vertebrobasilar circulation. Pedro Reveles MD Brain MRI 09/20/17 0000 Signed Impressions: Service Date/Time: Wednesday, September 20, 2017 16:00 - CONCLUSION: 1. Large evolving infarct in the anterior and middle cerebral artery distributions as a consequence of distal left ICA occlusion extending into the anterior and middle cerebral arteries. 2. No evidence of associated hemorrhage or significant mass effect. 3. Unremarkable right cerebral hemisphere, brainstem or cerebellum. Pedro Reveles MD Objective Remarks HEENT/Neuro: No pallor or icterus, tongue moist, pupils 2 mm bilaterally reacting actively to light, drowsy, not following commands. Nonverbal, Withdraws all 4 extremities with pain Chest/pulmonary: CTA bilaterally Cardiovascular: S1-S2 regular no gallop or murmur GI/abdomen: Soft, nontender, bowel sounds present Extremities: Warm bilaterally, no edema A/P Assessment and Plan 77-year-old female with: Encephalopathy Ischemic stroke involving left MCA territory Rhabdomyolysis History of DVT Hypertension Plan: Neuro: Follow neuro status. Protecting airway currently, may require intubation if neurologic status worsens. Neurology consult requested. Permissive hypertension in view of ischemic stroke. Will use labetalol as needed for systolic blood pressure greater than 210mm Hg, ASA 300mg rectally daily Cardiovascular: IV hydration, watch for hypotension. Permissive hypertension for ischemic stroke as above. Pulmonary: Supplemental O2, bronchodilators as needed. May require intubation for airway protection if neurologic status worsens. GI/liver: N.p.o. for now. May require NG tube/Dobbhoff for feeding/meds. Renal/: IV hydration, strict intake output, monitor and replete electrolytes, follow BN creatinine. Follow CPK ID: No indication for antibiotics at this time. Heme: On anticoagulation with Eliquis at home which is on hold currently until evaluation by neurology. Resume anticoagulation if okay with neurology. Prophylaxis: Lovenox for DVT prophylaxis, Pepcid for GI prophylaxis. Discussed with family regarding current clinical status and plan of care and they voiced understanding. I did explain that patient may require intubation for airway protection if neurologic status worsens. Cy Longoria MD Sep 21, 2017 14:51
--- NOTE | 2017-09-21 19:22 | ECHRPT ---
Indication: CVA/TIA CONCLUSIONS Normal left ventricular size. Wall thickness is normal. The left ventricular systolic function is normal with an estimated ejection fraction in the range of 60-65%. Moderate to severe mitral valve regurgitation. Mitral annular calcification is present. Aortic valve sclerosis is present. Mild aortic valve regurgitation. There is mild to moderate tricuspid regurgitation. The estimated pulmonary arterial pressure is 44 mmHg. BP: / HR: Rhythm: MEASUREMENTS (Male / Female) Normal Values Technical Quality: 2D ECHO LV Diastolic Diameter PLAX 4.5 cm 4.2 - 5.9 / 3.9 - 5.3 cm LV Systolic Diameter PLAX 3.5 cm IVS Diastolic Thickness 1.2 cm 0.6 - 1.0 / 0.6 - 0.9 cm LVPW Diastolic Thickness 0.9 cm 0.6 - 1.0 / 0.6 - 0.9 cm LV Relative Wall Thickness 0.5 RV Internal Dim ED PLAX 2.0 cm M-MODE Aortic Root Diameter MM 2.7 cm AV Cusp Separation MM 1.9 cm DOPPLER MR Peak Velocity 745.0 cm/s MR Peak Gradient 222.0 mmHg TR Peak Velocity 312.0 cm/s TR Peak Gradient 38.9 mmHg Right Atrial Pressure 5.0 mmHg Pulmonary Artery Systolic Pressu 43.9 mmHg Right Ventricular Systolic Press 43.9 mmHg FINDINGS LEFT VENTRICLE Normal left ventricular size. Wall thickness is normal. The left ventricular systolic function is normal with an estimated ejection fraction in the range of 60-65%. RIGHT VENTRICLE Normal right ventricular size and systolic function. LEFT ATRIUM The left atrial size is normal. RIGHT ATRIUM The right atrial size is normal. ATRIAL SEPTUM Normal atrial septal thickness without atrial level shunting by limited color doppler interrogation. AORTA The aortic root and proximal ascending aorta are normal in size on limited imaging. MITRAL VALVE Moderate to severe mitral valve regurgitation. Mitral annular calcification is present. AORTIC VALVE Aortic valve sclerosis is present. Mild aortic valve regurgitation. TRICUSPID VALVE There is mild to moderate tricuspid regurgitation. The estimated pulmonary arterial pressure is 44 mmHg. PULMONARY VALVE No pulmonary valve regurgitation or stenosis. VESSELS The inferior vena cava is normal in size. PERICARDIUM No pericardial effusion. Gisell Callaway MD, FACC (Electronically Signed) Final Date:21 September 2017 19:21
--- NOTE | 2017-09-21 22:03 | RADRPT ---
EXAM DATE/TIME: 09/21/2017 21:16 [facility] COMPARISON: CT BRAIN W/O CONTRAST, September 20, 2017, 8:41. INDICATIONS : Altered mental status. RADIATION DOSE: 45.65 CTDIvol (mGy) MEDICAL HISTORY : Hypertension. DVT. SURGICAL HISTORY : None. ENCOUNTER: Subsequent ACUITY: 2 days PAIN SCALE: Non-responsive LOCATION: cranial TECHNIQUE: Multiple contiguous axial images were obtained of the head. Using automated exposure control and adj ustment of the mA and/or kV according to patient size, radiation dose was kept as low as reasonably a chievable to obtain optimal diagnostic quality images. DICOM format image data is available electro nically for review and comparison. FINDINGS: Evolving left frontal stroke is present. There is moderate effacement of the regional cortical sulci. Effacement of sylvian fissure and slight compression of its lateral lateral ventricle. Minimal subfa lcine midline shift anteriorly. There is no evidence of macroscopic hemorrhage. The posterior fossa a nd brainstem structures are stable and unremarkable. The contralateral right hemisphere is stable and unremarkable. There is layering fluid in the left maxillary sinus as previously. CONCLUSION: Evolving left frontal stroke. Cameron Seaman MD on September 21, 2017 at 21:59 Board Certified Radiologist. This report was verified electronically.
--- NOTE | 2017-09-21 23:15 | EKG ---
Date Performed: 09/20/2017 Time Performed: 11:29:53 PTAGE: 77 years EKG: Sinus rhythm BORDERLINE LEFT AXIS DEVIATION BORDERLINE ECG Since the PREVIOUS TRACING , no significant change noted DOCTOR: Gisell Callaway Interpretating Date/Time 09/21/2017 23:14:46
--- NOTE | 2017-09-21 23:18 | EKG ---
Date Performed: 09/20/2017 Time Performed: 10:00:06 PTAGE: 77 years EKG: Sinus rhythm BORDERLINE LEFT AXIS DEVIATION ST DEVIATION AND MODERATE T-WAVE ABNORMALITY ABNORMAL ECG PREVIOUS TRACING : 04/08/2000 13.00 Since the previous tracing, no significant change noted DOCTOR: Gisell Callaway Interpretating Date/Time 09/29/2017 07:23:20
[2017-09-22] VITALS (12 sets, daily range): BP systolic 166–187; BP diastolic 73–89; PULSE 56–90; RESP 22–29; TEMP 98.6–101; O2SAT 96–97
[2017-09-22] MEDS: SODIUM CHLOR 0.9% 1000 ML INJ 1,000 ML IV SCH (02:35)
[2017-09-22] MEDS: CHLORHEXIDINE GLUCONATE 2 % 1 PACK (2 CLOTHS) TOP SCH (04:00)
--- NOTE | 2017-09-22 08:25 | HHI.CCPN ---
Subjective Remarks/Hospital Course 09/20: 77-year-old female with a medical history significant for hypertension, DVT who was found laying on the floor unresponsive at home with facial asymmetry though was minimally arousable. She was last known to be okay the night before presentation. Patient was found to have right-sided weakness. Head CT done in the ER revealed left MCA territory ischemic infarct which appeared to be subacute in nature. Patient was accepted for admission by critical care medicine service. She was not felt to be a candidate for TPA or IR intervention due to unknown time of onset of symptoms. When I evaluated patient in the ER she was laying in the ER stretcher, opening her eyes to command however nonverbal. 09/21: Remains encephalopathic, arousable. Withdraws both lower extremities and upper extremities to pain. 09/22: Drowsy, arousable. Squeezes with left hand and wiggles toes on command. Remains nonverbal. Objective Vital Signs Date Time Temp Pulse Resp B/P (MAP) Pulse Ox O2 Delivery O2 Flow Rate FiO2 09/22/17 06:00 56 09/22/17 04:00 100.2 25 187/79 (115) 96 09/21/17 19:00 Room Air 09/20/17 19:00 21 Intake and Output 09/22/17 09/22/17 09/23/17 08:00 16:00 00:00 Output Total 425 ml Balance -425 ml Result Diagram: 09/21/17 0529 09/21/17 0529 Imaging Last Impressions Carotid Artery Ultrasound 09/21/17 0000 Signed Impressions: Service Date/Time: Thursday, September 21, 2017 09:37 - CONCLUSION: Limited exam by patient habitus. Negative for hemodynamically significant stenosis. Alin Richard MD FACR Head CT 09/20/17 08 Signed Impressions: Service Date/Time: Wednesday, September 20, 2017 08:41 - CONCLUSION: 1. Findings consistent with subacute left MCA territory infarction with hyperdense left MCA suggesting left MCA thrombus. No significant hemorrhage or herniation at this time. Clem Arreguin MD Chest X-Ray 09/20/17810 Signed Impressions: Service Date/Time: Wednesday, September 20, 2017 08:32 - CONCLUSION: 1. Probable hiatal hernia. 2. No acute cardiopulmonary disease. Clme Arreguin MD Head Magnetic Resonance Angiography 09/20/17 0000 Signed Impressions: Service Date/Time: Wednesday, September 20, 2017 16:00 - CONCLUSION: 1. Distal left ICA occlusion extending intracranially and involving the left anterior and middle cerebral arteries. 2. Intact right cerebral and vertebrobasilar circulation. Pedro Reveles MD Brain MRI 09/20/17 0000 Signed Impressions: Service Date/Time: Wednesday, September 20, 2017 16:00 - CONCLUSION: 1. Large evolving infarct in the anterior and middle cerebral artery distributions as a consequence of distal left ICA occlusion extending into the anterior and middle cerebral arteries. 2. No evidence of associated hemorrhage or significant mass effect. 3. Unremarkable right cerebral hemisphere, brainstem or cerebellum. Pedro Reveles MD Objective Remarks HEENT/Neuro: No pallor or icterus, tongue moist, pupils 2 mm bilaterally reacting actively to light, drowsy, not following commands. Nonverbal, squeezes with left hand and wiggles toes. Decreased movement on right. Chest/pulmonary: CTA bilaterally Cardiovascular: S1-S2 regular no gallop or murmur GI/abdomen: Soft, nontender, bowel sounds present Extremities: Warm bilaterally, no edema A/P Assessment and Plan 77-year-old female with: Encephalopathy Ischemic stroke involving left MCA territory Rhabdomyolysis History of DVT Hypertension Plan: Neuro: Follow neuro status. Protecting airway currently, may require intubation if neurologic status worsens. Neurology consult requested. Permissive hypertension in view of ischemic stroke. Will use labetalol as needed for systolic blood pressure greater than 210mm Hg, ASA 300mg rectally daily Cardiovascular: IV hydration, watch for hypotension. Permissive hypertension for ischemic stroke as above. Pulmonary: Supplemental O2, bronchodilators as needed. May require intubation for airway protection if neurologic status worsens. GI/liver: Insert Dobbhoff for feeding/meds. Renal/: IV hydration, strict intake output, monitor and replete electrolytes, follow BN creatinine. Follow CPK ID: No indication for antibiotics at this time. Heme: On anticoagulation with Eliquis at home which is on hold currently until evaluation by neurology. Resume anticoagulation if okay with neurology. Prophylaxis: Lovenox for DVT prophylaxis, Pepcid for GI prophylaxis. Discussed with family regarding current clinical status and plan of care and they voiced understanding. I did explain that patient may require intubation for airway protection if neurologic status worsens. Cy Longoria MD Sep 22, 2017 08:25
[2017-09-22] MEDS: SODIUM CHLORIDE 0.9% FLUSH 10 ML FLUSH IV FLUSH SCH ×2 (09:00→21:00)
[2017-09-22] MEDS: ASPIRIN 300 MG SUPP RECTAL SCH (09:50)
[2017-09-22] MEDS: FAMOTIDINE 20 MG/2 ML VIAL IV PUSH SCH ×2 (09:50→21:11)
[2017-09-22] MEDS: ENOXAPARIN SODIUM 40 MG/0.4 ML SYRINGE SQ SCH (12:57)
[2017-09-22 13:07] LABS: ALBUMIN 2.8 GM/DL (3.4-5.0); ALKALINE PHOSPHATASE 71 U/L (45-117); ALT (GPT) 18 U/L (10-53); AST (GOT) 28 U/L (15-37); BICARBONATE 19.9 MEQ/L (21.0-32.0); BLOOD UREA NITROGEN 17 MG/DL (7-18); CALCIUM 9.2 MG/DL (8.5-10.1); CHLORIDE 117 MEQ/L (98-107); CREATININE 0.74 MG/DL (0.50-1.00); GLOMERULAR FILTRATION RATE 92 ML/MIN (>89); GLUCOSE,RANDOM 100 MG/DL (74-106); SODIUM (NA) 145 MEQ/L (136-145); TOTAL BILIRUBIN ADULT 0.5 MG/DL (0.2-1.0); TOTAL PROTEIN 6.4 GM/DL (6.4-8.2)
[2017-09-22] MEDS: hydrALAZINE HCL 20 MG/ML VIAL IV PUSH PRN (14:07)
--- NOTE | 2017-09-22 14:09 | RADRPT ---
EXAM DATE/TIME: 09/22/2017 13:39 [facility] COMPARISON: CHEST SINGLE AP, September 20, 2017, 8:32. INDICATIONS : Evaluate dobhoff placement MEDICAL HISTORY : Hypertension. DVT. SURGICAL HISTORY : None. ENCOUNTER: Initial ACUITY: 4 - 6 days PAIN SCORE: Non-responsive. LOCATION: Abdomen FINDINGS: The feeding type nasoenteric catheter tip overlies the region of the mid stomach. Air is seen through out the colon. No significant dilated loops of bowel. Rotary levoscoliosis of the lumbar spine. The CONCLUSION: 1. Dobbhoff feeding tube tip projecting over the mid stomach. Clem Arreguin MD on September 22, 2017 at 14:06 Board Certified Radiologist. This report was verified electronically.
[2017-09-23] VITALS (12 sets, daily range): BP systolic 170–208; BP diastolic 74–93; PULSE 61–124; RESP 20–29; TEMP 99–100.4; O2SAT 94–97
[2017-09-23] MEDS: CHLORHEXIDINE GLUCONATE 2 % 1 PACK (2 CLOTHS) TOP SCH (04:00)
[2017-09-23 04:36] LABS: AUTOMATED NEUTROPHIL # 8.3 TH/MM3 (1.8-7.7); BASOPHIL # 0.1 TH/MM3 (0-0.2); BASOPHIL % 0.6 % (0.0-2.0); EOSINOPHIL # 0.1 TH/MM3 (0-0.4); EOSINOPHIL % 0.7 % (0.0-4.0); HEMATOCRIT 41.2 % (35.0-46.0); HEMOGLOBIN 13.4 GM/DL (11.6-15.3); LYMPH % 14.6 % (9.0-44.0); LYMPHOCYTE # 1.6 TH/MM3 (1.0-4.8); MEAN CELL VOLUME 82.3 FL (80.0-100.0); MEAN CORPUSCULAR HEMOGLOBIN 26.8 PG (27.0-34.0); MEAN CORPUSCULAR HGB CONC 32.6 % (32.0-36.0); MEAN PLATELET VOLUME 8.4 FL (7.0-11.0); MONO % 10.9 % (0.0-8.0); MONOCYTE # 1.2 TH/MM3 (0-0.9); NEUT % 73.2 % (16.0-70.0); PLATELET COUNT 184 TH/MM3 (150-450); RED CELL DISTRIBUTION WIDTH 13.1 % (11.6-17.2); WHITE BLOOD COUNT 11.3 TH/MM3 (4.0-11.0)
[2017-09-23 04:51] LABS: ALBUMIN 2.8 GM/DL (3.4-5.0); AST (GOT) 26 U/L (15-37); BICARBONATE 21.5 MEQ/L (21.0-32.0); BLOOD UREA NITROGEN 23 MG/DL (7-18); CALCIUM 9.1 MG/DL (8.5-10.1); CHLORIDE 119 MEQ/L (98-107); CREATININE 0.82 MG/DL (0.50-1.00); GLOMERULAR FILTRATION RATE 81 ML/MIN (>89); GLUCOSE,RANDOM 143 MG/DL (74-106); SODIUM (NA) 147 MEQ/L (136-145)
[2017-09-23 04:54] LABS: ALKALINE PHOSPHATASE 71 U/L (45-117); ALT (GPT) 19 U/L (10-53); TOTAL BILIRUBIN ADULT 0.4 MG/DL (0.2-1.0); TOTAL PROTEIN 6.4 GM/DL (6.4-8.2)
[2017-09-23] MEDS: SODIUM CHLOR 0.9% 1000 ML INJ 1,000 ML IV SCH ×3 (05:46→21:29)
[2017-09-23] MEDS: SODIUM CHLORIDE 0.9% FLUSH 10 ML FLUSH IV FLUSH SCH ×2 (08:57→21:00)
--- NOTE | 2017-09-23 10:17 | HHI.CCPN ---
Subjective Remarks/Hospital Course 09/20: 77-year-old female with a medical history significant for hypertension, DVT who was found laying on the floor unresponsive at home with facial asymmetry though was minimally arousable. She was last known to be okay the night before presentation. Patient was found to have right-sided weakness. Head CT done in the ER revealed left MCA territory ischemic infarct which appeared to be subacute in nature. Patient was accepted for admission by critical care medicine service. She was not felt to be a candidate for TPA or IR intervention due to unknown time of onset of symptoms. When I evaluated patient in the ER she was laying in the ER stretcher, opening her eyes to command however nonverbal. 09/21: Remains encephalopathic, arousable. Withdraws both lower extremities and upper extremities to pain. 09/22: Drowsy, arousable. Squeezes with left hand and wiggles toes on command. Remains nonverbal. 09/23: Drowsy, easily arousable, has spontaneous eye opening today. Remains nonverbal. not moving right upper extremity. Tolerating tube feeds Via Dobbhoff. Objective Vital Signs Date Time Temp Pulse Resp B/P (MAP) Pulse Ox O2 Delivery O2 Flow Rate FiO2 09/23/17 10:00 75 09/23/17 08:00 99.9 28 193/79 (117) 95 09/23/17 07:00 Room Air 09/20/17 19:00 21 Intake and Output 09/23/17 09/23/17 09/24/17 08:00 16:00 00:00 Intake Total 1550 ml 0 ml Output Total 325 ml Balance 1225 ml 0 ml Result Diagram: 09/23/17 0337 09/23/17 0337 Imaging Last Impressions Carotid Artery Ultrasound 09/21/17 0000 Signed Impressions: Service Date/Time: Thursday, September 21, 2017 09:37 - CONCLUSION: Limited exam by patient habitus. Negative for hemodynamically significant stenosis. Alin Richard MD FACR Head CT 09/20/17 0811 Signed Impressions: Service Date/Time: Wednesday, September 20, 2017 08:41 - CONCLUSION: 1. Findings consistent with subacute left MCA territory infarction with hyperdense left MCA suggesting left MCA thrombus. No significant hemorrhage or herniation at this time. Clem Arreguin MD Chest X-Ray 09/20/17 0811 Signed Impressions: Service Date/Time: Wednesday, September 20, 2017 08:32 - CONCLUSION: 1. Probable hiatal hernia. 2. No acute cardiopulmonary disease. Clem Arreguin MD Head Magnetic Resonance Angiography 09/20/17 0000 Signed Impressions: Service Date/Time: Wednesday, September 20, 2017 16:00 - CONCLUSION: 1. Distal left ICA occlusion extending intracranially and involving the left anterior and middle cerebral arteries. 2. Intact right cerebral and vertebrobasilar circulation. Pedro Reveles MD Brain MRI 09/20/17 0000 Signed Impressions: Service Date/Time: Wednesday, September 20, 2017 16:00 - CONCLUSION: 1. Large evolving infarct in the anterior and middle cerebral artery distributions as a consequence of distal left ICA occlusion extending into the anterior and middle cerebral arteries. 2. No evidence of associated hemorrhage or significant mass effect. 3. Unremarkable right cerebral hemisphere, brainstem or cerebellum. Pedro Reveles MD Objective Remarks HEENT/Neuro: No pallor or icterus, tongue moist, pupils 2 mm bilaterally reacting actively to light, drowsy, not following commands. Nonverbal, squeezes with left hand and wiggles toes. Decreased movement on right. Chest/pulmonary: CTA bilaterally Cardiovascular: S1-S2 regular no gallop or murmur GI/abdomen: Soft, nontender, bowel sounds present Extremities: Warm bilaterally, no edema A/P Assessment and Plan 77-year-old female with: Encephalopathy Ischemic stroke involving left MCA territory Rhabdomyolysis History of DVT Hypertension Plan: Neuro: Follow neuro status. Protecting airway currently, may require intubation if neurologic status worsens. Neurology consult requested. Permissive hypertension in view of ischemic stroke. Will use labetalol as needed for systolic blood pressure greater than 210mm Hg, ASA changed to 325 mg daily. Repeat head CT on 09/24 to follow-up on ischemic stroke/cerebral edema. Cardiovascular: IV hydration, watch for hypotension. Permissive hypertension for ischemic stroke as above. Pulmonary: Supplemental O2, bronchodilators as needed. May require intubation for airway protection if neurologic status worsens. GI/liver: Dobbhoff for feeding/meds. Consult GI for evaluation for PEG tube early next week. Renal/: IV hydration, strict intake output, monitor and replete electrolytes, follow BN creatinine. Follow CPK ID: No indication for antibiotics at this time. Heme: On anticoagulation with Eliquis at home which is on hold currently until evaluation by neurology. Resume anticoagulation after PEG tube placement early next week if okay with neurology. Prophylaxis: Lovenox for DVT prophylaxis, Pepcid for GI prophylaxis. Discussed with family regarding current clinical status and plan of care and they voiced understanding. I did discuss need for PEG tube which patient's daughter is agreeable with. She wishes to continue aggressive care. Will consult palliative care to assist with deciding goals of therapy including CODE STATUS. Patient will probably require fdc placement. Case management consult to assist with discharge planning. We will consult and transfer to hospitalist service for further medical management starting 09/24, critical care will be signing off at this time. Please reconsult if needed. Cy Longoria MD Sep 23, 2017 10:17
[2017-09-23] MEDS: ASPIRIN 325 MG TAB PO SCH (10:58)
[2017-09-23] MEDS: FAMOTIDINE 20 MG/2 ML VIAL IV PUSH SCH ×2 (10:59→21:00)
[2017-09-23] MEDS: ENOXAPARIN SODIUM 40 MG/0.4 ML SYRINGE SQ SCH (11:00)
--- NOTE | 2017-09-23 12:55 | PD.CONS ---
HPI History of Present Illness This is a 77 year old with PMH significant for HTN and DVT on Eliquis at home who was brought to the ER after being found on the floor at home with facial asymmetry and right sided weakness. A brain MRI revealed large evolving infarct in the anterior and MCA distributions as a consequence of distal left ICU occlusion extending into the anterior and middle cerebral arteries. Pt was not a candidate for TPA or IR intervention given an unknown time from start of symptoms. She is currently in ICU, opens eyes to verbal stimuli but nonverbal. Given this, history was obtained through chart review. Our service has been consulted to evaluate patient for PEG tube placement. Currently has Dobbhoff with tube feeding running at 60 mL/hr. (Ashley Morales) PFSH Past Medical History HTN DVT CVA Osteoporosis Past Surgical History Hysterectomy Bilateral eye cataract removal (Ashley Morales) Coded Allergies: No Known Allergies (Unverified Allergy, Unknown, 09/20/17) Review of Systems Unable to obtain (Ashley Mroales) GI Exam Vitals I&O Vital Signs Date Time Temp Pulse Resp B/P (MAP) Pulse Ox O2 Delivery O2 Flow Rate FiO2 09/23/17 12:00 61 09/23/17 12:00 99.8 61 24 183/74 (110) 95 09/23/17 10:00 75 09/23/17 08:00 99.9 75 28 193/79 (117) 95 09/23/17 08:00 73 09/23/17 07:00 95 Room Air 09/23/17 06:00 70 09/23/17 04:00 70 09/23/17 04:00 100.4 70 24 189/76 (113) 94 09/23/17 02:00 62 09/23/17 00:00 100.3 72 20 170/74 (106) 95 09/23/17 00:00 72 09/22/17 22:00 63 09/22/17 20:00 90 09/22/17 20:00 101.0 90 27 179/79 (112) 96 09/22/17 20:00 96 Room Air 09/22/17 18:00 84 09/22/17 16:00 77 09/22/17 16:00 100.0 77 22 166/73 (104) 96 09/22/17 14:00 72 I/O 09/22/17 09/22/17 09/22/17 09/23/17 09/23/17 09/23/17 07:00 15:00 23:00 07:00 15:00 23:00 Intake Total 1550 ml 0 ml Output Total 425 ml 300 ml 325 ml Balance -425 ml -300 ml 1225 ml 0 ml Intake Oral 0 ml IV Total 1000 ml Tube Feeding 450 ml Other 100 ml Output Urine Total 425 ml 300 ml 325 ml # Bowel Movements 0 0 0 Imaging Last Impressions Abdomen X-Ray 09/22/17 0000 Signed Impressions: Service Date/Time: September 13:39 - CONCLUSION: 1. Dobbhoff feeding tube tip projecting over the mid stomach. Clem Arreguin MD Head CT 09/21/17 0000 Signed Impressions: Service Date/Time: Thursday, September 21, 2017 21:16 - CONCLUSION: Evolving left frontal stroke. Cameron Seaman MD Carotid Artery Ultrasound 09/21/17 0000 Signed Impressions: Service Date/Time: Thursday, September 21, 2017 09:37 - CONCLUSION: Limited exam by patient habitus. Negative for hemodynamically significant stenosis. Alin Richard MD FACR Chest X-Ray 09/20/17 0811 Signed Impressions: Service Date/Time: Wednesday, September 20, 2017 08:32 - CONCLUSION: 1. Probable hiatal hernia. 2. No acute cardiopulmonary disease. Clem Arreguin MD Head Magnetic Resonance Angiography 09/20/17 0000 Signed Impressions: Service Date/Time: Wednesday, September 20, 2017 16:00 - CONCLUSION: 1. Distal left ICA occlusion extending intracranially and involving the left anterior and middle cerebral arteries. 2. Intact right cerebral and vertebrobasilar circulation. Pedro Reveles MD Brain MRI 09/20/17 0000 Signed Impressions: Service Date/Time: Wednesday, September 20, 2017 16:00 - CONCLUSION: 1. Large evolving infarct in the anterior and middle cerebral artery distributions as a consequence of distal left ICA occlusion extending into the anterior and middle cerebral arteries. 2. No evidence of associated hemorrhage or significant mass effect. 3. Unremarkable right cerebral hemisphere, brainstem or cerebellum. Pedro Reveles MD Laboratory Test 09/23/17 03:37 White Blood Count 11.3 TH/MM3 Red Blood Count 5.00 MIL/MM3 Hemoglobin 13.4 GM/DL Hematocrit 41.2 % Mean Corpuscular Volume 82.3 FL Mean Corpuscular Hemoglobin 26.8 PG Mean Corpuscular Hemoglobin Concent 32.6 % Red Cell Distribution Width 13.1 % Platelet Count 184 TH/MM3 Mean Platelet Volume 8.4 FL Neutrophils (%) (Auto) 73.2 % Lymphocytes (%) (Auto) 14.6 % Monocytes (%) (Auto) 10.9 % Eosinophils (%) (Auto) 0.7 % Basophils (%) (Auto) 0.6 % Neutrophils # (Auto) 8.3 TH/MM3 Lymphocytes # (Auto) 1.6 TH/MM3 Monocytes # (Auto) 1.2 TH/MM3 Eosinophils # (Auto) 0.1 TH/MM3 Basophils # (Auto) 0.1 TH/MM3 CBC Comment DIFF FINAL Differential Comment Blood Urea Nitrogen 23 MG/DL Creatinine 0.82 MG/DL Random Glucose 143 MG/DL Total Protein 6.4 GM/DL Albumin 2.8 GM/DL Calcium Level 9.1 MG/DL Alkaline Phosphatase 71 U/L Aspartate Amino Transf (AST/SGOT) 26 U/L Alanine Aminotransferase (ALT/SGPT) 19 U/L Total Bilirubin 0.4 MG/DL Sodium Level 147 MEQ/L Potassium Level 3.5 MEQ/L Chloride Level 119 MEQ/L Carbon Dioxide Level 21.5 MEQ/L Anion Gap 7 MEQ/L Estimat Glomerular Filtration Rate 81 ML/MIN Total Creatine Kinase 246 U/L Creatine Kinase MB 1.8 NG/ML Creatine Kinase MB % 0.7 % Date/Time Source Procedure Growth Status 09/20/17 08:26 Blood Peripheral Aerobic Blood Culture - Preliminary NO GROWTH IN 3 DAYS Resulted 09/20/17 08:26 Blood Peripheral Anaerobic Blood Culture - Preliminary NO GROWTH IN 3 DAYS Resulted 09/20/17 08:26 Urine Catheterized Urine Urine Culture - Final NO GROWTH IN 48 HOURS. Complete Physical Examination HEENT: Normocephalic; atraumatic CHEST: Even/unlabored CARDIAC: RRR ABDOMEN: Obese, soft, bowel sounds active SKIN: Normal; no rash; no jaundice. SUPERVISOR HEADING: Opens eyes to verbal stimuli, nonverbal (Ashley Morales) Assessment and Plan Plan Assessment: - Consult for PEG tube placement- Found to be on floor at home with facial asymmetry and unilateral weakness. S/P brain MRI revealed large evolving infarct in the anterior and MCA distributions as a consequence of distal left ICU occlusion extending into the anterior and middle cerebral arteries. Pt was not a candidate for TPA or IR intervention given an unknown time from start of symptoms. History of DVT- On Eliquis at home, currently on hold- On Lovenox Currently TF, Jevity, through Dobbhoff at 60 mL/hr KUB (09/22) Nasoenteric catheter tip overlies the region of the mid stomach. Air is seen throughout the colon. No significant dilated loops of bowel. 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 Metzger and this note is written on her behalf (Ashley Morales) Physician Comments seen, examined agree with above (Cassidy Metzger MD) Ashley Morales Sep 23, 2017 12:55 Cassidy Metzger MD Sep 23, 2017 17:01
[2017-09-23] MEDS ORDERED: ceFAZolin 2 GM PREMIX 50 ML IV SCH (13:00)
--- NOTE | 2017-09-23 13:04 | PD.CONS ---
Consult Service Palliative Care . Consult Requested By Dr. Tonja Longoria . Primary Care Physician Nelsy Allen MD . Reason for Consultation a. To assist with evaluation and management of symptoms including: dysphagia , weakness. b. To assist medical decision maker(s) with: better understanding of current medical conditions; weighing benefits/burdens of medical treatment options; making medical treatment decisions. HPI History of Present Illness Ms. Cantu is a 77 year old female with past medical history of hypertension, DVT LE on Eliquis, osteoporosis and cancer. Upon review of EMR records: Dr. Norris has seen this patient for 3.9 x 2.5cm mass in medial posterior left lower lung with 2.2 cm posterior mediastinal lymph node suspicious for lung cancer, multiple tiny scattered lung nodules, 2.2 cm liver lesion suspicious for mets lung cancer. On 09/14/17,he recommended PET/CT scan and repeat LE ultrasound ( was supposed to be done 09/23, however she remains in ICU). Patient presented to [facility] emergency department of 09/20/17 after she was found minimally responsive on the floor at home with notable facial asymmetry, right sided weakness. She had been seen in normal state on 09/18/17. Review of initial ER findings: * VS: temp 98.2, pulse 73, resp 24, BP 190/91, oxygen sat 95% on room air. * WBC 13.7, hemoglobin 15, hematocrit 45.9, platelets 214, neutrophils 85% * Lactic acid 3.9 * PT 11.2, INR1.1, PTT 26.7 * Urinalysis - rare bacteria culture indicated - No growth in 48 hours. * Blood cultures negative at 3 days. * Total protein 8.5, albumin 4.0 * sodium 141, potassium 3.9, [id number], carbon dioxide 21.2, GFR 66, BUN 18, creatinine 0.98 * T. bili 0.5, AST 35, ALT 18, alk phos 105 * Toxicology screen: negative. * Ethyol alcohol - 4 * Total creatine kinase - 1125 * CK-MB 17.1, CK-MB % 1.5. * CT head - left MCA territory ischemic infarct. * Head MRA - distal left ICA occlusion extending intracranially and involving the left anterior and middle cerebral arteries, intact right cerebral and vertebrobasilar circulation. * Brain MRI - large evolving infarct in the anterior and middle cerebral artery due to distal left ICA occlusion extending into the anterior and middle cerebral arteries. No acute hemorrhage or mass effect. * CXR - probable hiatal hernia, no acute cardiopulmonary disease. Patient was admitted with left MCA ischemic stroke. Neurology, Dr. Mcgregor was consulted. Dobbhoff tube was placed for nutrition. Additional work up included: * Echocardiogram - EF 60-65%, moderate to severe mitral valve regurgitation, aortic valve sclerosis. * Carotid artery ultrasound: limited exam, negative for significant stenosis. * Repeat CT head on 09/21/17 - evolving left frontal stroke Patient has remained in ICU. Notes indicate she has been arousable, but drowsy. Nonverbal. She is able to follow simple commands on the left, not moving right side. Tolerating tube feeding. Will likely need PEG tube and will likely need penitentiary placement upon DC. Patient does not appear painful during my visit. She awakens briefly. She remains flaccid on right side. Spontaneous movement noted of left UE during my visit. Mildly labored respirations noted at rest. Palliative care was consulted to assist with clarification of medical treatment goals. Discussed with Dr. Longoria. . Function/Cognitive Trajectory Patient was living at home alone prior to admission. Her daughter lives 2 doors down and checks on her frequently. Patient has never driven a car, requires somebody to take her grocery shopping. Will occasionally take the bus to the grocery store. . Review of Systems ROS Limitations: Altered Mental Status (Drowsy, arouses briefly, nonverbal.) Constitutional: COMPLAINS OF: Fatigue, Weight loss, Change in appetite ( Decreased), Generalized weakness Eyes: COMPLAINS OF: Blurred vision (Wears glasses) Cardiovascular: COMPLAINS OF: Dyspnea on Exertion, Lower Extremity Edema ( Prior DVT) Hematologic/Lymphatics: COMPLAINS OF: Bruising Neurologic: COMPLAINS OF: Localized weakness, Poor Balance Other ROS: Patient unable to provide ROS, ROS per daughter's report. . Past Family Social History Coded Allergies: No Known Allergies (Unverified Allergy, Unknown, 09/20/17) Past Medical History DVT right LE Hypertension Osteoporosis Hiatal hernia Lung mass suspicious for lung cancer . Past Surgical History Bilateral Cataract removal Hysterectomy Varicose vein stripping (2014) . Reported Medications Reported Meds & Active Scripts Active Reported Dorzolamide-Timolol Opth Drops 22.3-6.8 Mg/Ml Soln 1 Drop EACH EYE BID Brimonidine Opth Drops (Brimonidine Tartrate) 0.2% Soln 1 Drop EACH EYE Q12HR Nifedipine ER 24 HR (Nifedipine) 60 Mg Tab 60 Mg PO DAILY Fosamax (Alendronate Sodium) 70 Mg Tab 70 Mg PO WEEKLY Lisinopril 40 Mg Tab 40 Mg PO DAILY Latanoprost Opth Drops (Latanoprost) 0.005% Drops 1 Drop EACH EYE HS Refrigerate until opened. Eliquis (Apixaban) 5 Mg Tab 5 Mg PO BID . Current Medications Medications (Trade) Dose Ordered Sig/Kathy Route Start Time Stop Time Status Last Admin Sodium Chloride 1,000 ml @ 70 mls/hr [id number] IV 09/20/17 12:00 09/23/17 07:11 (NS Flush) 2 ml UNSCH PRN IV FLUSH 09/20/17 10:45 (NS Flush) 2 ml BID IV FLUSH 09/20/17 21:00 09/23/17 08:57 (Pepcid Inj) 20 mg Q12HR IV PUSH 09/20/17 21:00 09/23/17 10:59 (Duoneb Neb) 1 ampule Q2HR NEB PRN INH 09/20/17 10:45 (Lovenox Inj) 40 mg Q24H SQ 09/20/17 12:00 09/23/17 11:00 Miscellaneous Information 1 [id number] XX 09/20/17 10:45 (Chlorhexidine 2% Cloth) 3 pack Taper DAILY@04 TOP 09/21/17 04:00 09/17/18 03:59 (Chlorhexidine 2% Cloth) 3 pack UNSCH PRN TOP 09/20/17 10:45 (Apresoline Inj) 5 mg Q30M PRN IV PUSH 09/21/17 22:00 09/22/17 14:07 (Aspirin) 325 mg DAILY PO 09/23/17 10:46 09/23/17 10:58 Family History Parents . Paternal grandparents . . Substance Use Tobacco: Smoked for 3 years, quit more than 50 years ago. Alcohol: None. Prescription med abuse:None Illicits:None . Psychosocial History . Has 1 son and 2 daughters. . Spiritual/Cultural Factors Pentecostalism loco. . Living Will: Never completed Health Care Surrogate: Never completed Durable Power of Transplant Nurse: Never completed Health Care Surrogate(s): Patient is not capacitated to make her own healthcare decisions, will not likely regain capacity given large MCA stroke. No written advanced directives. . According to [place] statutes, healthcare proxy decision making falls to the majority of adult children. Patient has 1 son and 2 daughters. . Documented care wishes: No written advanced directives. . Today's verbally stated goals: Patient is not capacitated to make her own healthcare decisions, will not likely regain capacity given large MCA stroke. . Family/friends goals: Goals remain aggressive at this time including proceeding with PEG tube placement and FULL CODE. Family is realistic and would not continue life prolonging measures/mechanical ventilation if patient's quality of life would not return to an acceptable level for her. At this time the family feels it would be too soon to transition to comfort focused care. . Ethical and Legal Issues Patient is not capacitated to make her own healthcare decisions, will not likely regain capacity given large MCA stroke. No written advanced directives. . According to [place] statutes, healthcare proxy decision making falls to the majority of adult children. Patient has 1 son and 2 daughters. Physical Exam Vital Signs Date Time Temp Pulse Resp B/P (MAP) Pulse Ox O2 Delivery O2 Flow Rate FiO2 09/23/17 12:00 61 09/23/17 12:00 99.8 61 24 183/74 (110) 95 09/23/17 10:00 75 09/23/17 08:00 99.9 75 28 193/79 (117) 95 09/23/17 08:00 73 09/23/17 07:00 95 Room Air 09/23/17 06:00 70 09/23/17 04:00 70 09/23/17 04:00 100.4 70 24 189/76 (113) 94 09/23/17 02:00 62 09/23/17 00:00 100.3 72 20 170/74 (106) 95 09/23/17 00:00 72 09/22/17 22:00 63 09/22/17 20:00 90 09/22/17 20:00 101.0 90 27 179/79 (112) 96 09/22/17 20:00 96 Room Air 09/22/17 18:00 84 09/22/17 16:00 77 09/22/17 16:00 100.0 77 22 166/73 (104) 96 09/22/17 14:00 72 09/23/17 09/24/17 19:00 07:00 Intake Total 0 ml Balance 0 ml Intake Oral 0 ml Exam CONSTITUTIONAL/GENERAL: This is an adequately nourished patient, in no apparent distress. TUBES/LINES/DRAINS: Dobbhoff, PIV right, Sullivan, SCDs. SKIN: No jaundice, rashes, or lesions. Ecchymoses on upper extremities. No wounds seen anteriorly. Skin temperature appropriate. Not diaphoretic. HEAD: Atraumatic. Normocephalic. EYES: Pupils equal and round and reactive. ENT: Unable to adequately assess hearing. Nose with Dobbhoff in place. Mouth closed. Drooling noted. NECK: Trachea midline. CARDIOVASCULAR: Regular rate and rhythm without murmurs, gallops, or rubs. No JVD. Peripheral pulses symmetric. RESPIRATORY/CHEST: Mildly labored respirations at rest. Some accessory muscle use noted. Clear to auscultation. GASTROINTESTINAL: Abdomen soft, nondistended. Bowel sounds present. GENITOURINARY: Without palpable bladder distension. Sullivan catheter in place, dark urine noted. MUSCULOSKELETAL: Extremities without clubbing, cyanosis, or edema. No mottling or clubbing. LYMPHATICS: No palpable cervical or supraclavicular adenopathy. NEUROLOGICAL: Arouses briefly, attempts to follow command with left hand. Non- verbal. No movement noted on right. Some spontaneous movement noted left UE. PSYCHIATRIC: No obvious anxiety/depression. no apparent hallucinations or other psychotic thought process. . Diagnostic Tests Laboratory Laboratory Tests Test 09/20/17 18:51 09/21/17 05:29 09/22/17 04:02 09/22/17 12:02 Nasal Screen MRSA (PCR) MRSA NOT DETECTED (NOT White Blood Count 13.1 TH/MM3 (4.0-11.0) Red Blood Count 5.67 MIL/MM3 (4.00-5.30) Hemoglobin 15.2 GM/DL (11.6-15.3) Hematocrit 47.8 % (35.0-46.0) Mean Corpuscular Volume 84.4 FL (80.0-100.0) Mean Corpuscular Hemoglobin 26.8 PG (27.0-34.0) Mean Corpuscular Hemoglobin Concent 31.8 % (32.0-36.0) Red Cell Distribution Width 13.0 % (11.6-17.2) Platelet Count 182 TH/MM3 (150-450) Mean Platelet Volume 8.7 FL (7.0-11.0) Neutrophils (%) (Auto) 76.7 % (16.0-70.0) Lymphocytes (%) (Auto) 12.9 % (9.0-44.0) Monocytes (%) (Auto) 9.1 % (0.0-8.0) Eosinophils (%) (Auto) 0.4 % (0.0-4.0) Basophils (%) (Auto) 0.9 % (0.0-2.0) Neutrophils # (Auto) 10.1 TH/MM3 (1.8-7.7) Lymphocytes # (Auto) 1.7 TH/MM3 (1.0-4.8) Monocytes # (Auto) 1.2 TH/MM3 (0-0.9) Eosinophils # (Auto) 0.1 TH/MM3 (0-0.4) Basophils # (Auto) 0.1 TH/MM3 (0-0.2) CBC Comment AUTO DIFF Differential Comment AUTO DIFF CONFIRMED Platelet Estimate NORMAL (NORMAL) Platelet Morphology Comment NORMAL (NORMAL) Blood Urea Nitrogen 15 MG/DL (7-18) 17 MG/DL (7-18) Creatinine 0.82 MG/DL (0.50-1.00) 0.74 MG/DL (0.50-1.00) Random Glucose 109 MG/DL (74-106) 100 MG/DL (74-106) Total Protein 7.3 GM/DL (6.4-8.2) 6.4 GM/DL (6.4-8.2) Albumin 3.4 GM/DL (3.4-5.0) 2.8 GM/DL (3.4-5.0) Calcium Level 9.2 MG/DL (8.5-10.1) 9.2 MG/DL (8.5-10.1) Phosphorus Level 2.1 MG/DL (2.5-4.9) Alkaline Phosphatase 88 U/L (45-117) 71 U/L (45-117) Aspartate Amino Transf (AST/SGOT) 54 U/L (15-37) 28 U/L (15-37) Alanine Aminotransferase (ALT/SGPT) 23 U/L (10-53) 18 U/L (10-53) Total Bilirubin 0.5 MG/DL (0.2-1.0) 0.5 MG/DL (0.2-1.0) Sodium Level 143 MEQ/L (136-145) 145 MEQ/L (136-145) Potassium Level 4.0 MEQ/L (3.5-5.1) 3.5 MEQ/L (3.5-5.1) Chloride Level 113 MEQ/L (98-107) 117 MEQ/L (98-107) Carbon Dioxide Level 21.0 MEQ/L (21.0-32.0) 19.9 MEQ/L (21.0-32.0) Anion Gap 9 MEQ/L (5-15) 8 MEQ/L (5-15) Estimat Glomerular Filtration Rate 81 ML/MIN (>89) 92 ML/MIN (>89) Total Creatine Kinase 838 U/L (26-192) 312 U/L (26-192) Creatine Kinase MB 7.5 NG/ML (0.5-3.6) 1.9 NG/ML (0.5-3.6) Creatine Kinase MB % 0.9 % (0.0-4.0) 0.6 % (0.0-4.0) Test 09/23/17 03:37 White Blood Count 11.3 TH/MM3 (4.0-11.0) Red Blood Count 5.00 MIL/MM3 (4.00-5.30) Hemoglobin 13.4 GM/DL (11.6-15.3) Hematocrit 41.2 % (35.0-46.0) Mean Corpuscular Volume 82.3 FL (80.0-100.0) Mean Corpuscular Hemoglobin 26.8 PG (27.0-34.0) Mean Corpuscular Hemoglobin Concent 32.6 % (32.0-36.0) Red Cell Distribution Width 13.1 % (11.6-17.2) Platelet Count 184 TH/MM3 (150-450) Mean Platelet Volume 8.4 FL (7.0-11.0) Neutrophils (%) (Auto) 73.2 % (16.0-70.0) Lymphocytes (%) (Auto) 14.6 % (9.0-44.0) Monocytes (%) (Auto) 10.9 % (0.0-8.0) Eosinophils (%) (Auto) 0.7 % (0.0-4.0) Basophils (%) (Auto) 0.6 % (0.0-2.0) Neutrophils # (Auto) 8.3 TH/MM3 (1.8-7.7) Lymphocytes # (Auto) 1.6 TH/MM3 (1.0-4.8) Monocytes # (Auto) 1.2 TH/MM3 (0-0.9) Eosinophils # (Auto) 0.1 TH/MM3 (0-0.4) Basophils # (Auto) 0.1 TH/MM3 (0-0.2) CBC Comment DIFF FINAL Differential Comment Blood Urea Nitrogen 23 MG/DL (7-18) Creatinine 0.82 MG/DL (0.50-1.00) Random Glucose 143 MG/DL (74-106) Total Protein 6.4 GM/DL (6.4-8.2) Albumin 2.8 GM/DL (3.4-5.0) Calcium Level 9.1 MG/DL (8.5-10.1) Alkaline Phosphatase 71 U/L (45-117) Aspartate Amino Transf (AST/SGOT) 26 U/L (15-37) Alanine Aminotransferase (ALT/SGPT) 19 U/L (10-53) Total Bilirubin 0.4 MG/DL (0.2-1.0) Sodium Level 147 MEQ/L (136-145) Potassium Level 3.5 MEQ/L (3.5-5.1) Chloride Level 119 MEQ/L (98-107) Carbon Dioxide Level 21.5 MEQ/L (21.0-32.0) Anion Gap 7 MEQ/L (5-15) Estimat Glomerular Filtration Rate 81 ML/MIN (>89) Total Creatine Kinase 246 U/L (26-192) Creatine Kinase MB 1.8 NG/ML (0.5-3.6) Creatine Kinase MB % 0.7 % (0.0-4.0) Result Diagram: 09/23/17 0337 09/23/17 0337 Microbiology Microbiology Date/Time Source Procedure Growth Status 09/20/17 08:26 Blood Peripheral Aerobic Blood Culture - Preliminary NO GROWTH IN 3 DAYS Resulted 09/20/17 08:26 Blood Peripheral Anaerobic Blood Culture - Preliminary NO GROWTH IN 3 DAYS Resulted 09/20/17 08:26 Urine Catheterized Urine Urine Culture - Final NO GROWTH IN 48 HOURS. Complete . Imaging Last Impressions Abdomen X-Ray 09/22/17 0000 Signed Impressions: Service Date/Time: September 13:39 - CONCLUSION: 1. Dobbhoff feeding tube tip projecting over the mid stomach. Clem Arreguin MD Head CT 09/21/17 0000 Signed Impressions: Service Date/Time: Thursday, September 21, 2017 21:16 - CONCLUSION: Evolving left frontal stroke. Cameron Seaman MD Carotid Artery Ultrasound 09/21/17 0000 Signed Impressions: Service Date/Time: Thursday, September 21, 2017 09:37 - CONCLUSION: Limited exam by patient habitus. Negative for hemodynamically significant stenosis. Alin Richard MD FACR Chest X-Ray 09/20/17 0811 Signed Impressions: Service Date/Time: Wednesday, September 20, 2017 08:32 - CONCLUSION: 1. Probable hiatal hernia. 2. No acute cardiopulmonary disease. Clem Arreguin MD Head Magnetic Resonance Angiography 09/20/17 0000 Signed Impressions: Service Date/Time: Wednesday, September 20, 2017 16:00 - CONCLUSION: 1. Distal left ICA occlusion extending intracranially and involving the left anterior and middle cerebral arteries. 2. Intact right cerebral and vertebrobasilar circulation. Pedro Reveles MD Brain MRI 09/20/17 0000 Signed Impressions: Service Date/Time: Wednesday, September 20, 2017 16:00 - CONCLUSION: 1. Large evolving infarct in the anterior and middle cerebral artery distributions as a consequence of distal left ICA occlusion extending into the anterior and middle cerebral arteries. 2. No evidence of associated hemorrhage or significant mass effect. 3. Unremarkable right cerebral hemisphere, brainstem or cerebellum. Pedro Reveles MD . Procedures * Dobbhoff placement . Patient/Family Conference Present at Family Conference: Spoke with daughter, Izzy Bruce via phone. Family Conference Time (mins): 35 Family Conference Location: Telephone Issues Discussed: * Palliative care role, purpose, approach * Additional medical, psychosocial, and spiritual history * Patients general health, functional status, and cognitive changes in the months leading up to the current hospitalization * Patient/family understanding of the current medical problems including possible malignancy, * Patient/family understanding of prognosis * Patients goals of care as best understood from conversations and/or values - No advanced directives. * Current medical treatment options and benefits/burdens of those options * Questions answered to the best of my ability * Palliative care contact information provided Assessment and Plan Disease Oriented Problem List: (1) Left acute arterial ischemic stroke, MCA (middle cerebral artery) (2) Dysphagia Comment: plan for PEG tube (3) Lung mass Comment: Dr. Norris has seen this patient for 3.9 x 2.5cm mass in medial posterior left lower lung with 2.2 cm posterior mediastinal lymph node suspicious for lung cancer, multiple tiny scattered lung nodules, 2.2 cm liver lesion suspicious for mets lung cancer. On 09/14/17,he recommended PET/CT scan and repeat LE ultrasound (was supposed to be done 09/23, however she remains in ICU). Symptom Scale: (1) Weakness 0-10 Scale: Unable to quantify (2) Dysphagia 0-10 Scale: Unable to quantify Pertinent Non-Medical Issues Psychosocial: . ! son and 2 daughters. Spiritual: Pentecostalism loco. Shakeel Bailey has been to visit patient. Daughter notified. Legal:Patient is not capacitated to make her own healthcare decisions, will not likely regain capacity given large MCA stroke. No written advanced directives. . According to [place] statutes, healthcare proxy decision making falls to the majority of adult children. Patient has 1 son and 2 daughters. Ethical issues impacting care: No known concerns at this time. . Important Contacts * Izzy Bruce, daughter: [phone] * Farhana Barboza, daughter: [phone] * Dillon Mejia, son: [phone] . Prognosis Ms. Barboza is a 77-year-old female admitted with large left MCA stroke. She was recently found to have lung mass, bilateral lung nodules and liver mass suspicious for lung cancer. She is high risk for aspiration and further decline. Life expectancy likely limited given her advanced age and current health problems. . Plan * Patient is not capacitated to make her own healthcare decisions, will not likely regain capacity given large MCA stroke. No written advanced directives. . According to [place] statutes, healthcare proxy decision making falls to the majority of adult children. Patient has 1 son (Dillon Mejia) and 2 daughters (Izzy Bruce and Farhana Barboza). * FULL CODE * Goals remain aggressive at this time including proceeding with PEG tube placement and FULL CODE. Family is realistic and would not continue life prolonging measures/mechanical ventilation if patient's quality of life would not return to an acceptable level for her. At this time the family feels it would be too soon to transition to comfort focused care. * SYMPTOMS: Dysphagia: has Dobbhoff in place, tolerating tube feeding. Plan for PEG tube in coming days. Weakness: due to possible mets lung cancer and recent large left MCA infarct. May be difficult for rehabilitation. * Palliative care number provided. * Palliative care will continue to follow to assist with symptom management, communication and further clarification of medical treatment goals as needed. . Thank you for the opportunity to participate in the care of Ms. Barboza. Attestation To help prompt me to consider important information that might be impacting today's encounter and assessment, information from prior notes written by myself or my colleagues may have been "brought forward" into today's note. My signature on this note, however, is an attestation that I personally performed the exam, history, and/or decision-making noted today, and, unless otherwise indicated, the interactions with patient, family, and staff as well as the review of records all occurred today. I also attest that the listed assessment and stated plan reflect my best clinical judgment today based on the combination of historical information, prior notes, and today's exam/ interactions. When time spent is documented, it refers only to time spent today by the signer, or if indicated, combined time spent today by collaborating physician/nurse practitioner. Latisha Gómez Sep 23, 2017 13:03
--- NOTE | 2017-09-23 15:30 | HHI.PR ---
Subjective Remarks S/P ng tube possible peg. not awake yet. not intubated. Objective Vital Signs Date Time Temp Pulse Resp B/P (MAP) Pulse Ox O2 Delivery O2 Flow Rate FiO2 09/23/17 14:00 73 09/23/17 12:00 61 09/23/17 12:00 99.8 61 24 183/74 (110) 95 09/23/17 10:00 75 09/23/17 08:00 99.9 75 28 193/79 (117) 95 09/23/17 08:00 73 09/23/17 07:00 95 Room Air 09/23/17 06:00 70 09/23/17 04:00 70 09/23/17 04:00 100.4 70 24 189/76 (113) 94 09/23/17 02:00 62 09/23/17 00:00 100.3 72 20 170/74 (106) 95 09/23/17 00:00 72 09/22/17 22:00 63 09/22/17 20:00 90 09/22/17 20:00 101.0 90 27 179/79 (112) 96 09/22/17 20:00 96 Room Air 09/22/17 18:00 84 09/22/17 16:00 77 09/22/17 16:00 100.0 77 22 166/73 (104) 96 I/O 09/22/17 09/22/17 09/22/17 09/23/17 09/23/17 09/23/17 07:00 15:00 23:00 07:00 15:00 23:00 Intake Total 1550 ml 0 ml Output Total 425 ml 300 ml 325 ml Balance -425 ml -300 ml 1225 ml 0 ml Intake Oral 0 ml IV Total 1000 ml Tube Feeding 450 ml Other 100 ml Output Urine Total 425 ml 300 ml 325 ml # Bowel Movements 0 0 0 Result Diagram: 09/23/1733609/23/17336 Objective Remarks asleep arouses and tries to follow with left hand gaze to left,pp pupils, nonverbal right hemiplegia right toe upgoing. Assessment and Plan Assessment and Plan large left mca infarct --cont asa 325mg qd -ct brain in am -check eeg -feeding tube -will need extensive pt-ot-st -will need extensive rehab for speech and motor involvement. scd/lovenox. -will need to be back on AC in next few days if stable.risk for hemorrhagic conversion of large mca stroke. Jazzmine Mcgregor MD Sep 23, 2017 15:30
[2017-09-23] MEDS: hydrALAZINE HCL 20 MG/ML VIAL IV PUSH PRN (15:45)
--- NOTE | 2017-09-23 22:56 | RADRPT ---
EXAM DATE/TIME: 09/23/2017 21:44 [facility] COMPARISON: ABDOMEN SINGLE VIEW, September 22, 2017, 13:39. INDICATIONS : Evaluate dobhoff placement. MEDICAL HISTORY : Hypertension. SURGICAL HISTORY : None. ENCOUNTER: Subsequent ACUITY: 3 days PAIN SCORE: Non-responsive. LOCATION: Abdomen. FINDINGS: No Dobbhoff tube is seen in the lower chest or abdomen. Dilated bowel is not seen. Free air is not se en. CONCLUSION: No Dobbhoff tube is seen. Cameron Harrison MD on September 23, 2017 at 22:53 Board Certified Radiologist. This report was verified electronically.
--- NOTE | 2017-09-23 23:52 | RADRPT ---
EXAM DATE/TIME: 09/23/2017 23:26 [facility] COMPARISON: CHEST SINGLE AP, September 20, 2017, 8:32. INDICATIONS : Shortness of breath MEDICAL HISTORY : Hypertension. SURGICAL HISTORY : None. ENCOUNTER: Initial ACUITY: 1 day PAIN SCORE: 0/10 LOCATION: Bilateral chest FINDINGS: A single portable frontal view the chest shows elevation of the right hemidiaphragm. Heart is at the upper limits of normal in terms of size. Lungs are clear without infiltrate or effusion. Bony structu res are unremarkable. CONCLUSION: No acute disease. Oseas Livingston Jr., MD on September 23, 2017 at 23:49 Board Certified Radiologist. This report was verified electronically.
[2017-09-24] VITALS (11 sets, daily range): BP systolic 160–201; BP diastolic 72–86; PULSE 64–107; RESP 20–30; TEMP 98.2–100.2; O2SAT 95–96
[2017-09-24] MEDS: CHLORHEXIDINE GLUCONATE 2 % 1 PACK (2 CLOTHS) TOP SCH (04:00)
--- NOTE | 2017-09-24 04:54 | RADRPT ---
EXAM DATE/TIME: 09/24/2017 04:12 [facility] COMPARISON: CT BRAIN W/O CONTRAST, September 21, 2017, 21:16. INDICATIONS : Follow up stroke. RADIATION DOSE: 66.34 CTDIvol (mGy) MEDICAL HISTORY : Hypertension. Deep venous thrombosis. Carcinoma, not otherwise specified. SURGICAL HISTORY : Hysterectomy. ENCOUNTER: Subsequent ACUITY: 4 - 6 days PAIN SCALE: Non-responsive LOCATION: cranial TECHNIQUE: Multiple contiguous axial images were obtained of the head. Using automated exposure control and adj ustment of the mA and/or kV according to patient size, radiation dose was kept as low as reasonably a chievable to obtain optimal diagnostic quality images. DICOM format image data is available electro nically for review and comparison. FINDINGS: Again seen is a large area of low density involving the left frontal and parietal lobes. This is cons istent with a nonhemorrhagic infarction. The area of infarction is stable from the prior study. It sh ows continued decrease in density. There is some mass effect with 5 mm of [id number]-[id number] midline shift . There is effacement of the left lateral ventricle. Ventricles are otherwise normal in size. Air flu id level seen involving the left maxillary sinus. Remaining paranasal sinuses and mastoid air cells a re clear. CONCLUSION: Continued maturation of a left frontoparietal nonhemorrhagic infarct. Oseas Livingston Jr., MD on September 24, 2017 at 4:50 Board Certified Radiologist. This report was verified electronically.
--- NOTE | 2017-09-24 08:44 | HHI.PR ---
Subjective Remarks nonverbal. family in room but sleeping. spoke to RN. lucy pulled out overnight. Objective Vitals nonverbal heart reg lung cta abd s/nt/bs ext no edema Vital Signs Date Time Temp Pulse Resp B/P (MAP) Pulse Ox O2 Delivery O2 Flow Rate FiO2 09/24/17 08:00 99.4 65 30 172/74 (106) 96 09/24/17 08:00 65 09/24/17 07:00 95 Room Air 09/24/17 06:00 72 09/24/17 04:00 107 09/24/17 04:00 100.1 84 27 173/72 (105) 96 09/24/17 02:00 95 09/24/17 00:00 100.2 107 29 201/86 (124) 96 09/24/17 00:00 107 09/23/17 22:00 124 09/23/17 20:00 99.0 100 29 208/93 (131) 96 09/23/17 20:00 100 09/23/17 19:00 97 Room Air 09/23/17 18:00 88 09/23/17 16:00 99.2 93 29 192/79 (116) 97 09/23/17 16:00 93 09/23/17 14:00 73 09/23/17 12:00 61 09/23/17 12:00 99.8 61 24 183/74 (110) 95 09/23/17 10:00 75 Result Diagram: 09/23/17 0337 09/23/17 0337 A/P Problem List: (1) Left acute arterial ischemic stroke, MCA (middle cerebral artery) ICD Codes: I63.512 - Cerebral infarction due to unspecified occlusion or stenosis of left middle cerebral artery Status: Acute Plan: 09/20: MRI Brain 1. Large evolving infarct in the anterior and middle cerebral artery distributions as a consequence of distal left ICA occlusion extending into the anterior and middle cerebral arteries. 2. No evidence of associated hemorrhage or significant mass effect. 3. Unremarkable right cerebral hemisphere, brainstem or cerebellum. 09/20: MRA Brain 1. Distal left ICA occlusion extending intracranially and involving the left anterior and middle cerebral arteries. 2. Intact right cerebral and vertebrobasilar circulation. 09/24: CT head Again seen is a large area of low density involving the left frontal and parietal lobes. This is consistent with a nonhemorrhagic infarction. The area of infarction is stable from the prior study. It shows continued decrease in density. There is some mass effect with 5 mm of ieyx-ma-hvyfz midline shift. There is effacement of the left lateral ventricle. Ventricles are otherwise normal in size. Air fluid level seen involving the left maxillary sinus. Remaining paranasal sinuses and mastoid air cells are clear. CONCLUSION: Continued maturation of a left frontoparietal nonhemorrhagic infarct. 1. Large infarct in the anterior and middle cerebral artery distribution Distal left ICA occlusion extending into the anterior and middle cerebral arteries cont fube feeding. replaced dobbhoff. peg tube planned. on ivf. permissive htn and lower when ok with neurology currently on asa and dvt prophylaxis lovenox. pt was on eliquis prior to admission. resume when ok with neurology. transfer to med/surg pt/ot/st poor prognosis. 2. rhabdomyolysis. cont ivf 3. htn..permissive until ok with neurology to lower 4. hx dvt (2) Rhabdomyolysis ICD Codes: M62.82 - Rhabdomyolysis Status: Acute (3) HTN (hypertension) ICD Codes: I10 - Essential (primary) hypertension Status: Chronic (4) Hx of deep venous thrombosis ICD Codes: Z86.718 - Personal history of other venous thrombosis and embolism Status: Chronic Mynor Vazquez MD Sep 24, 2017 08:43
[2017-09-24] MEDS: SODIUM CHLORIDE 0.9% FLUSH 10 ML FLUSH IV FLUSH SCH ×2 (09:00→21:00)
--- NOTE | 2017-09-24 09:28 | HHI.GIFU ---
Subjective Remarks Pt in bed, does not open eyes Family at bedside sleeping Per chart, Dobhoff was pulled out overnight Objective Vitals I&O Vital Signs Date Time Temp Pulse Resp B/P (MAP) Pulse Ox O2 Delivery O2 Flow Rate FiO2 09/24/17 08:00 99.4 65 30 172/74 (106) 96 09/24/17 08:00 65 09/24/17 07:00 95 Room Air 09/24/17 06:00 72 09/24/17 04:00 107 09/24/17 04:00 100.1 84 27 173/72 (105) 96 09/24/17 02:00 95 09/24/17 00:00 100.2 107 29 201/86 (124) 96 09/24/17 00:00 107 09/23/17 22:00 124 09/23/17 20:00 99.0 100 29 208/93 (131) 96 09/23/17 20:00 100 09/23/17 19:00 97 Room Air 09/23/17 18:00 88 09/23/17 16:00 99.2 93 29 192/79 (116) 97 09/23/17 16:00 93 09/23/17 14:00 73 09/23/17 12:00 61 09/23/17 12:00 99.8 61 24 183/74 (110) 95 09/23/17 10:00 75 I/O 09/23/17 09/23/17 09/23/17 09/24/17 09/24/17 09/24/17 07:00 15:00 23:00 07:00 15:00 23:00 Intake Total 1550 ml 0 ml 752 ml 840 ml Output Total 325 ml 525 ml 950 ml Balance 1225 ml 0 ml 227 ml -110 ml Intake Oral 0 ml IV Total 1000 ml 840 ml Tube Feeding 450 ml 722 ml Other 100 ml 30 ml Output Urine Total 325 ml 525 ml 950 ml # Bowel Movements 0 0 0 Laboratory Date/Time Source Procedure Growth Status 09/20/17 08:26 Blood Peripheral Aerobic Blood Culture - Preliminary NO GROWTH IN 3 DAYS Resulted 09/20/17 08:26 Blood Peripheral Anaerobic Blood Culture - Preliminary NO GROWTH IN 3 DAYS Resulted 09/20/17 08:26 Urine Catheterized Urine Urine Culture - Final NO GROWTH IN 48 HOURS. Complete Imaging Last Impressions Head CT 09/24/17 0600 Signed Impressions: Service Date/Time: Sunday, September 24, 2017 04:12 - CONCLUSION: Continued maturation of a left frontoparietal nonhemorrhagic infarct. Oseas Livingston Jr., MD Chest X-Ray 09/23/17 0000 Signed Impressions: Service Date/Time: Saturday, September 23, 2017 23:26 - CONCLUSION: No acute disease. Oseas Livingston Jr., MD Abdomen X-Ray 09/23/17 0000 Signed Impressions: Service Date/Time: Saturday, September 23, 2017 21:44 - CONCLUSION: No Dobbhoff tube is seen. Cameron Harrison MD Carotid Artery Ultrasound 09/21/17 0000 Signed Impressions: Service Date/Time: Thursday, September 21, 2017 09:37 - CONCLUSION: Limited exam by patient habitus. Negative for hemodynamically significant stenosis. Alin Richard MD FACR Head Magnetic Resonance Angiography 09/20/17 0000 Signed Impressions: Service Date/Time: Wednesday, September 20, 2017 16:00 - CONCLUSION: 1. Distal left ICA occlusion extending intracranially and involving the left anterior and middle cerebral arteries. 2. Intact right cerebral and vertebrobasilar circulation. Pedro Reveles MD Brain MRI 09/20/17 0000 Signed Impressions: Service Date/Time: Wednesday, September 20, 2017 16:00 - CONCLUSION: 1. Large evolving infarct in the anterior and middle cerebral artery distributions as a consequence of distal left ICA occlusion extending into the anterior and middle cerebral arteries. 2. No evidence of associated hemorrhage or significant mass effect. 3. Unremarkable right cerebral hemisphere, brainstem or cerebellum. Pedro Reveles MD Physical Exam HEENT: Normocephalic; atraumatic CHEST: Even/unlabored CARDIAC: RRR ABDOMEN: Soft, nondistended, bowel sounds active SKIN: Normal; no rash; no jaundice. PEDIATRIC SOCIAL WORKER: Does not open eyes Assessment and Plan Plan Assessment: - Consult for PEG tube placement- Found to be on floor at home with facial asymmetry and unilateral weakness. S/P brain MRI revealed large evolving infarct in the anterior and MCA distributions as a consequence of distal left ICU occlusion extending into the anterior and middle cerebral arteries. Pt was not a candidate for TPA or IR intervention given an unknown time from start of symptoms. History of DVT- On Eliquis at home, currently on hold- On Lovenox Currently TF, Jevity, through Dobbhoff at 60 mL/hr KUB (09/22) Nasoenteric catheter tip overlies the region of the mid stomach. Air is seen throughout the colon. No significant dilated loops of bowel. - Unable to obtain history, pt nonverbal (09/24) --> Dobhoff pulled out overnight. Pts condition remains the same. Plan remains for EGD with PEG placement on Tuesday, Ancef production reproduction manager. Replaced Dobhoff if needed over the weekend. Plan: EGD with PEG on Tuesday Obtain consent Hold TF after MN Tuesday Ancef production reproduction manager Hold Lovenox day of procedure Monitor labs Nutrition consult appreciated - recommending Jevity 1.5 with goal rate 50mL/hr Further recommendations based on clinical course Pt has been seen and examined by myself and Dr. Kumar and this note is written on her behalf Ashley Morales Sep 24, 2017 09:28
[2017-09-24] MEDS: SODIUM CHLOR 0.9% 1000 ML INJ 1,000 ML IV SCH (11:47)
--- NOTE | 2017-09-24 12:18 | RADRPT ---
EXAM DATE/TIME: 09/24/2017 11:43 [facility] COMPARISON: ABDOMEN SINGLE VIEW, September 23, 2017, 21:44. INDICATIONS : Dobbhoff feeding tube placement. MEDICAL HISTORY : None. SURGICAL HISTORY : None. ENCOUNTER: Initial ACUITY: 4 - 6 days PAIN SCORE: Non-responsive. LOCATION: Left upper quadrant FINDINGS: A single AP supine portable view of the abdomen was obtained. Portions of the right side of the abdom en and lower pelvis are cut off the exam. There is been placement of a Dobbhoff type feeding tube wit h the tip projected over the mid stomach. Bowel gas pattern appears unremarkable with gas and stool n oted segmentally in the colon. The lung bases are clear. CONCLUSION: Feeding tube placement with tip projected over the mid stomach. Brown Pinedo MD on September 24, 2017 at 12:15 Board Certified Radiologist. This report was verified electronically.
[2017-09-24] MEDS: ASPIRIN 325 MG TAB PO SCH (12:37)
[2017-09-24] MEDS: BRIMONIDINE TARTRATE 0.2% OPHT SOLN 5 ML BTL EACH EYE SCH ×2 (12:37→20:00)
[2017-09-24] MEDS: ENOXAPARIN SODIUM 40 MG/0.4 ML SYRINGE SQ SCH (12:37)
[2017-09-24] MEDS: DORZOLAMIDE/TIMOLOL OPTH SOLN 10 ML BTL EACH EYE SCH ×2 (12:37→20:00)
[2017-09-24] MEDS: FAMOTIDINE 20 MG/2 ML VIAL IV PUSH SCH ×2 (12:37→20:00)
--- NOTE | 2017-09-24 12:41 | HHI.PR ---
Review/Management Daily Summary 09/24 awakened and might follow simple motor commands distal limbs aphasia and severe right hemiparesis discussed with her daughter and RN this am will require snf support and rehab Subjective Subjective Comments lethargic Active Medications Current Medications Medications (Trade) Dose Ordered Sig/Kathy Route Start Time Stop Time Status Last Admin Sodium Chloride 1,000 ml @ 70 mls/hr [id number] IV 09/20/17 12:00 09/24/17 11:47 (NS Flush) 2 ml UNSCH PRN IV FLUSH 09/20/17 10:45 (NS Flush) 2 ml BID IV FLUSH 09/20/17 21:00 09/24/17 09:00 (Pepcid Inj) 20 mg Q12HR IV PUSH 09/20/17 21:00 09/24/17 12:37 (Duoneb Neb) 1 ampule Q2HR NEB PRN INH 09/20/17 10:45 (Lovenox Inj) 40 mg Q24H SQ 09/20/17 12:00 09/24/17 12:37 Miscellaneous Information 1 [id number] XX 09/20/17 10:45 (Chlorhexidine 2% Cloth) 3 pack Taper DAILY@04 TOP 09/21/17 04:00 09/17/18 03:59 (Chlorhexidine 2% Cloth) 3 pack UNSCH PRN TOP 09/20/17 10:45 (Aspirin) 325 mg DAILY PO 09/23/17 10:46 09/24/17 12:37 Cefazolin Sodium/ Dextrose 50 ml @ 100 mls/hr MEAL GRINDER TENDER IV 09/23/17 13:00 09/26/17 12:59 (Vasotec Inj) 1.25 mg Q4H PRN IV PUSH 09/24/17 08:45 (Alphagan 0.2% Opth Soln) 1 drop Q12HR EACH EYE 09/24/17 10:00 09/24/17 12:37 (Cosopt 2-0.5% Opth Soln) 1 drop BID EACH EYE 09/24/17 10:00 09/24/17 12:37 (Xalatan 0.005% Opth Soln) 1 drop HS EACH EYE 09/24/17 21:00 Allergies Allergies Coded Allergies No Known Allergies (Unverified Allergy, Unknown, 09/20/17) Exam I&O / VS Vital Signs Date Time Temp Pulse Resp B/P (MAP) Pulse Ox O2 Delivery O2 Flow Rate FiO2 09/24/17 12:00 65 09/24/17 12:00 99.5 64 26 187/78 (114) 96 09/24/17 10:00 64 09/24/17 08:00 99.4 65 30 172/74 (106) 96 09/24/17 08:00 65 09/24/17 07:00 95 Room Air 09/24/17 06:00 72 09/24/17 04:00 107 09/24/17 04:00 100.1 84 27 173/72 (105) 96 09/24/17 02:00 95 09/24/17 00:00 100.2 107 29 201/86 (124) 96 09/24/17 00:00 107 09/23/17 22:00 124 09/23/17 20:00 99.0 100 29 208/93 (131) 96 09/23/17 20:00 100 09/23/17 19:00 97 Room Air 09/23/17 18:00 88 09/23/17 16:00 99.2 93 29 192/79 (116) 97 09/23/17 16:00 93 09/23/17 14:00 73 Objective Radiology Results Last [address] 09/24/17 0600 Signed Impressions: Service Date/Time: Sunday, September 24, 2017 04:12 - CONCLUSION: Continued maturation of a left frontoparietal nonhemorrhagic infarct. Oseas Livingston Jr., MD Abdomen X-Ray 09/24/17 0000 Signed Impressions: Service Date/Time: Sunday, September 24, 2017 11:43 - CONCLUSION: Feeding tube placement with tip projected over the mid stomach. Brown Pinedo MD Chest X-Ray 09/23/17 0000 Signed Impressions: Service Date/Time: Saturday, September 23, 2017 23:26 - CONCLUSION: No acute disease. Oseas Livingston Jr., MD Abdomen X-Ray 09/23/17 0000 Signed Impressions: Service Date/Time: Saturday, September 23, 2017 21:44 - CONCLUSION: No Dobbhoff tube is seen. Cameron Harrison MD Micro and Labs Date/Time Source Procedure Growth Status 09/20/17 08:26 Blood Peripheral Aerobic Blood Culture - Preliminary NO GROWTH IN 4 DAYS Resulted 09/20/17 08:26 Blood Peripheral Anaerobic Blood Culture - Preliminary NO GROWTH IN 4 DAYS Resulted 09/20/17 08:26 Urine Catheterized Urine Urine Culture - Final NO GROWTH IN 48 HOURS. Complete Muna Reese MD Sep 24, 2017 12:41
--- NOTE | 2017-09-24 20:32 | MG ---
cc: Muna Reese MD REFERRING PHYSICIAN: Jazzmine Mcgregor MD An EEG was obtained on this 77 years old patient with history of stroke and lethargy. This EEG shows bilateral slowing and some attenuation on the left hemisphere. There are theta rhythms and lack of more dominant alpha activity. There are beta rhythms diffusely. The patient seems awake and asleep and the asymmetry persists. There is lot of artifact when the patient is apparently more awake. Photic stimulation was unremarkable. INTERPRETATION: Abnormal electroencephalogram because of bilateral slowing and the left hemisphere attenuation is possibly the more pronounced abnormality suggesting structural abnormality, left more than right, but no epileptiform features present. Muna Alvarado. MD Hugh OFC/rt , 08:15 PM , 08:31 PM
[2017-09-24] MEDS: LATANOPROST 0.005% OPHT SOLN 2.5 ML BTL EACH EYE SCH (23:11)
[2017-09-25] VITALS (7 sets, daily range): BP systolic 157–215; BP diastolic 69–94; PULSE 65–82; RESP 18–22; TEMP 97.9–99.4; O2SAT 92–95
[2017-09-25] MEDS: SODIUM CHLOR 0.9% 1000 ML INJ 1,000 ML IV SCH ×2 (02:20→12:26)
[2017-09-25] MEDS: CHLORHEXIDINE GLUCONATE 2 % 1 PACK (2 CLOTHS) TOP SCH ×2 (04:35→21:42)
[2017-09-25] MEDS: FAMOTIDINE 20 MG/2 ML VIAL IV PUSH SCH ×2 (08:03→21:52)
[2017-09-25] MEDS: ASPIRIN 325 MG TAB PO SCH (08:03)
[2017-09-25] MEDS: DORZOLAMIDE/TIMOLOL OPTH SOLN 10 ML BTL EACH EYE SCH ×2 (08:04→21:53)
[2017-09-25] MEDS: SODIUM CHLORIDE 0.9% FLUSH 10 ML FLUSH IV FLUSH SCH ×2 (08:04→21:53)
[2017-09-25] MEDS: BRIMONIDINE TARTRATE 0.2% OPHT SOLN 5 ML BTL EACH EYE SCH ×2 (08:04→21:53)
[2017-09-25 08:11] LABS: AUTOMATED NEUTROPHIL # 7.2 TH/MM3 (1.8-7.7); BASOPHIL # 0.1 TH/MM3 (0-0.2); BASOPHIL % 0.6 % (0.0-2.0); EOSINOPHIL # 0.4 TH/MM3 (0-0.4); EOSINOPHIL % 3.8 % (0.0-4.0); HEMATOCRIT 37.4 % (35.0-46.0); HEMOGLOBIN 12.2 GM/DL (11.6-15.3); LYMPH % 15.8 % (9.0-44.0); LYMPHOCYTE # 1.6 TH/MM3 (1.0-4.8); MEAN CELL VOLUME 82.7 FL (80.0-100.0); MEAN CORPUSCULAR HEMOGLOBIN 26.9 PG (27.0-34.0); MEAN CORPUSCULAR HGB CONC 32.5 % (32.0-36.0); MONO % 10.8 % (0.0-8.0); MONOCYTE # 1.1 TH/MM3 (0-0.9); PLATELET COUNT 187 TH/MM3 (150-450); RED BLOOD COUNT 4.52 MIL/MM3 (4.00-5.30); RED CELL DISTRIBUTION WIDTH 13.2 % (11.6-17.2); WHITE BLOOD COUNT 10.4 TH/MM3 (4.0-11.0)
--- NOTE | 2017-09-25 08:22 | HHI.PR ---
Subjective Remarks pt opens eyes and looks at sister. nonverbal. Objective Vitals nonverbal right hemiparesis dobbhoff heart reg lung cta no edema Vital Signs Date Time Temp Pulse Resp B/P (MAP) Pulse Ox O2 Delivery O2 Flow Rate FiO2 09/25/17 05:13 79 09/25/17 04:00 98.0 82 22 157/69 (98) 94 09/25/17 00:00 67 09/25/17 00:00 98.3 65 20 168/79 (108) 95 09/24/17 22:00 67 09/24/17 20:00 98.2 69 20 160/76 (104) 95 09/24/17 20:00 Room Air 09/24/17 16:29 99.8 70 21 186/80 (115) 96 09/24/17 14:00 77 09/24/17 12:00 65 09/24/17 12:00 99.5 64 26 187/78 (114) 96 09/24/17 10:00 64 Result Diagram: 09/25/17 0749 09/23/17 0337 A/P Problem List: (1) Left acute arterial ischemic stroke, MCA (middle cerebral artery) ICD Codes: I63.512 - Cerebral infarction due to unspecified occlusion or stenosis of left middle cerebral artery Status: Acute Plan: 09/20: MRI Brain 1. Large evolving infarct in the anterior and middle cerebral artery distributions as a consequence of distal left ICA occlusion extending into the anterior and middle cerebral arteries. 2. No evidence of associated hemorrhage or significant mass effect. 3. Unremarkable right cerebral hemisphere, brainstem or cerebellum. 09/20: MRA Brain 1. Distal left ICA occlusion extending intracranially and involving the left anterior and middle cerebral arteries. 2. Intact right cerebral and vertebrobasilar circulation. 09/24: CT head Again seen is a large area of low density involving the left frontal and parietal lobes. This is consistent with a nonhemorrhagic infarction. The area of infarction is stable from the prior study. It shows continued decrease in density. There is some mass effect with 5 mm of fxhb-zm-yjicw midline shift. There is effacement of the left lateral ventricle. Ventricles are otherwise normal in size. Air fluid level seen involving the left maxillary sinus. Remaining paranasal sinuses and mastoid air cells are clear. CONCLUSION: Continued maturation of a left frontoparietal nonhemorrhagic infarct. 1. Large infarct in the anterior and middle cerebral artery distribution Distal left ICA occlusion extending into the anterior and middle cerebral arteries right hemiparesis. nonverbal. cont fube feeding. replaced dobbhoff. peg tube planned for Tuesday. on ivf. permissive htn and lower when ok with neurology currently on asa and dvt prophylaxis lovenox. pt was on eliquis prior to admission. resume when ok with neurology. transferred to med/surg pt/ot/st poor prognosis. Long talk with sister Mindi who just arrived in town. She is in agreement with peg/snf plans but thinks pt should be dnr and then comfort/hospice pursued if she deteriorates or not tolerated snf. ...she will talk with family. I reviewed ct and mri/a images with her. She thinks the daughter is feeling guilty and not making correct decisions. 2. rhabdomyolysis. cont ivf 3. htn..permissive until ok with neurology to lower 4. hx dvt (2) Rhabdomyolysis ICD Codes: M62.82 - Rhabdomyolysis Status: Acute (3) HTN (hypertension) ICD Codes: I10 - Essential (primary) hypertension Status: Chronic (4) Hx of deep venous thrombosis ICD Codes: Z86.718 - Personal history of other venous thrombosis and embolism Status: Chronic Mynor Vazquez MD Sep 25, 2017 08:22
[2017-09-25 08:47] LABS: BICARBONATE 23.4 MEQ/L (21.0-32.0); CALCIUM 9.5 MG/DL (8.5-10.1); CREATININE 0.81 MG/DL (0.50-1.00)
[2017-09-25] MEDS: ENOXAPARIN SODIUM 40 MG/0.4 ML SYRINGE SQ SCH (12:26)
--- NOTE | 2017-09-25 14:52 | HHI.GIFU ---
Subjective Remarks Pt sleeping Dobhoff to R nostril, TF off (Ashley Morales DELICATESSEN DEPARTMENT MANAGER) Objective Vitals I&O Vital Signs Date Time Temp Pulse Resp B/P (MAP) Pulse Ox O2 Delivery O2 Flow Rate FiO2 09/25/17 12:00 98.7 78 18 183/79 (113) 94 09/25/17 08:00 Room Air 09/25/17 08:00 99.4 81 18 165/69 (101) 94 09/25/17 05:13 79 09/25/17 04:00 98.0 82 22 157/69 (98) 94 09/25/17 00:00 67 09/25/17 00:00 98.3 65 20 168/79 (108) 95 09/24/17 22:00 67 09/24/17 20:00 98.2 69 20 160/76 (104) 95 09/24/17 20:00 Room Air 09/24/17 16:29 99.8 70 21 186/80 (115) 96 I/O 09/24/17 09/24/17 09/24/17 09/25/17 09/25/17 09/25/17 07:00 15:00 23:00 07:00 15:00 23:00 Intake Total 840 ml 30 ml 720 ml Output Total 950 ml 500 ml Balance -110 ml -470 ml 720 ml IV Total 840 ml Tube Feeding 720 ml Other 30 ml Output Urine Total 950 ml 500 ml # Bowel Movements 0 0 Laboratory Laboratory Tests Test 09/25/17 07:49 White Blood Count 10.4 Red Blood Count 4.52 Hemoglobin 12.2 Hematocrit 37.4 Mean Corpuscular Volume 82.7 Mean Corpuscular Hemoglobin 26.9 Mean Corpuscular Hemoglobin Concent 32.5 Red Cell Distribution Width 13.2 Platelet Count 187 Mean Platelet Volume 8.0 Neutrophils (%) (Auto) 69.0 Lymphocytes (%) (Auto) 15.8 Monocytes (%) (Auto) 10.8 Eosinophils (%) (Auto) 3.8 Basophils (%) (Auto) 0.6 Neutrophils # (Auto) 7.2 Lymphocytes # (Auto) 1.6 Monocytes # (Auto) 1.1 Eosinophils # (Auto) 0.4 Basophils # (Auto) 0.1 CBC Comment DIFF FINAL Differential Comment Blood Urea Nitrogen 32 Creatinine 0.81 Random Glucose 144 Calcium Level 9.5 Sodium Level 151 Potassium Level 3.5 Chloride Level 118 Carbon Dioxide Level 23.4 Anion Gap 10 Estimat Glomerular Filtration Rate 83 Date/Time Source Procedure Growth Status 09/20/17 08:26 Blood Peripheral Aerobic Blood Culture - Final NO GROWTH IN 5 DAYS Complete 09/20/17 08:26 Blood Peripheral Anaerobic Blood Culture - Final NO GROWTH IN 5 DAYS Complete 09/20/17 08:26 Urine Catheterized Urine Urine Culture - Final NO GROWTH IN 48 HOURS. Complete Imaging Last Impressions Head CT 09/24/17 0600 Signed Impressions: Service Date/Time: Sunday, September 24, 2017 04:12 - CONCLUSION: Continued maturation of a left frontoparietal nonhemorrhagic infarct. Oseas Livingston Jr., MD Abdomen X-Ray 09/24/17 0000 Signed Impressions: Service Date/Time: Sunday, September 24, 2017 11:43 - CONCLUSION: Feeding tube placement with tip projected over the mid stomach. Brown Pinedo MD Chest X-Ray 09/23/17 0000 Signed Impressions: Service Date/Time: Saturday, September 23, 2017 23:26 - CONCLUSION: No acute disease. Oseas Livingston Jr., MD Carotid Artery Ultrasound 09/21/17 0000 Signed Impressions: Service Date/Time: Thursday, September 21, 2017 09:37 - CONCLUSION: Limited exam by patient habitus. Negative for hemodynamically significant stenosis. Alin Richard MD FACR Head Magnetic Resonance Angiography 09/20/17 0000 Signed Impressions: Service Date/Time: Wednesday, September 20, 2017 16:00 - CONCLUSION: 1. Distal left ICA occlusion extending intracranially and involving the left anterior and middle cerebral arteries. 2. Intact right cerebral and vertebrobasilar circulation. Pedro Reveles MD Brain MRI 09/20/17 0000 Signed Impressions: Service Date/Time: Wednesday, September 20, 2017 16:00 - CONCLUSION: 1. Large evolving infarct in the anterior and middle cerebral artery distributions as a consequence of distal left ICA occlusion extending into the anterior and middle cerebral arteries. 2. No evidence of associated hemorrhage or significant mass effect. 3. Unremarkable right cerebral hemisphere, brainstem or cerebellum. Pedro Reveles MD Physical Exam HEENT: Normocephalic; atraumatic CHEST: Even/unlabored CARDIAC: RRR ABDOMEN: Soft, nondistended, bowel sounds active . Dobbhoff to R nostril SKIN: Normal; no rash; no jaundice. AVIATION SAFETY INSPECTOR: Does not open eyes (Ashley Morales) Assessment and Plan Plan Assessment: - Consult for PEG tube placement- Found to be on floor at home with facial asymmetry and unilateral weakness. S/P brain MRI revealed large evolving infarct in the anterior and MCA distributions as a consequence of distal left ICU occlusion extending into the anterior and middle cerebral arteries. Pt was not a candidate for TPA or IR intervention given an unknown time from start of symptoms. History of DVT- On Eliquis at home, currently on hold- On Lovenox Currently TF, Jevity, through Dobbhoff at 60 mL/hr KUB (09/22) Nasoenteric catheter tip overlies the region of the mid stomach. Air is seen throughout the colon. No significant dilated loops of bowel. - Unable to obtain history, pt nonverbal (09/24) --> Dobhoff pulled out overnight. Pts condition remains the same. Plan remains for EGD with PEG placement on Tuesday, Ancef mortuary operations manager. Replaced Dobhoff if needed over the weekend. (09/25) Dobbhoff replaced, currently in R nostril. Tube feeding is off. Plan: EGD with PEG tomorrow Obtain consent Hold TF after MN maryanight Dilan mortuary operations manager Hold Lovenox day of procedure Monitor labs Nutrition consult appreciated - recommending Jevity 1.5 with goal rate 50mL/hr Further recommendations based on clinical course Pt has been seen and examined by myself and Dr. Harry and this note is written on his behalf (Ashley Morales) Physician Comments Patient seen and examined Agree with above Continue with current supportive care Monitor labs PEG in am (Grady Harry MD) Ashley Morales Sep 25, 2017 14:52 Grady Harry MD Sep 25, 2017 21:26
[2017-09-25] MEDS: ENALAPRILAT 1.25 MG/ML VIAL IV PUSH PRN (16:32)
[2017-09-25] MEDS: SODIUM CHLOR 0.45% 1000 ML INJ 1,000 ML IV SCH (16:33)
[2017-09-25] MEDS: RESP: ALBUTEROL 2.5 MG/IPRATROPIUM 0.5 MG NEB (PRN) INH (16:49)
[2017-09-25] MEDS: LATANOPROST 0.005% OPHT SOLN 2.5 ML BTL EACH EYE SCH (21:54)
[2017-09-26] VITALS: BP 186/77; PULSE 79; RESP 20; TEMP 97.8; O2SAT 92
[2017-09-26 04:00] VITALS: BP 176/78; PULSE 76; RESP 20; TEMP 97.3; O2SAT 93
[2017-09-26] MEDS: RESP: ALBUTEROL 2.5 MG/IPRATROPIUM 0.5 MG NEB (PRN) INH (04:52)
[2017-09-26] MEDS: SODIUM CHLOR 0.45% 1000 ML INJ 1,000 ML IV SCH ×2 (05:48→21:14)
[2017-09-26 07:50] LABS: BICARBONATE 24.1 MEQ/L (21.0-32.0); CALCIUM 9.1 MG/DL (8.5-10.1); CREATININE 0.65 MG/DL (0.50-1.00)
[2017-09-26 08:00] VITALS: BP 204/87; PULSE 77; RESP 23; TEMP 98.6; O2SAT 92
[2017-09-26] MEDS: SODIUM CHLORIDE 0.9% FLUSH 10 ML FLUSH IV FLUSH SCH ×2 (09:00→21:15)
[2017-09-26] MEDS: ASPIRIN 325 MG TAB PO SCH (09:00)
[2017-09-26] MEDS: FAMOTIDINE 20 MG/2 ML VIAL IV PUSH SCH ×2 (09:00→21:15)
[2017-09-26] MEDS: DORZOLAMIDE/TIMOLOL OPTH SOLN 10 ML BTL EACH EYE SCH ×2 (09:01→21:14)
[2017-09-26] MEDS: BRIMONIDINE TARTRATE 0.2% OPHT SOLN 5 ML BTL EACH EYE SCH ×2 (09:01→21:14)
[2017-09-26 11:15] VITALS: PULSE 82
[2017-09-26] MEDS ORDERED: LIDOCAINE HCL 1% PF 5 ML SYRINGE OTHER ONE (12:00)
[2017-09-26] MEDS ORDERED: hydrALAZINE HCL 20 MG/ML VIAL IV ONE (12:00)
--- NOTE | 2017-09-26 13:29 | PD.PROCEDR ---
GI Procedure PROCEDURE PERFORMED EGD with PEG placement INDICATION FOR PROCEDURE Dysphagia, CVA PROCEDURE: The procedure, risks and benefits were discussed with Patient/POA and informed consent was obtained. Anesthesia sedated Patient with Diprivan. Patient was placed in the left lateral decubitus position. EGD: The Pentax videoscope was introduced through the oropharynx and advanced to the second portion of the duodenum under direct visualization. Retroflexion was performed in the stomach. FINDINGS: The esophagus this appeared to be unremarkable with normal limits The stomach this to appear to be unremarkable and within normal limits The duodenum this to appear to be unremarkable and within normal limits Following the evaluation of the stomach and the duodenum the stomach was insufflated with air and the area of PEG placement was identified through indentation and transillumination the area was prepped and draped in usual fashion 5 cc of lidocaine were injected locally a small incision was made then an Angiocath was passed into the stomach through which a guidewire was passed this was retrieved with the scope into that a PEG tube was attached and pulled into place and thereafter secured in usual fashion The patient tolerated procedure well and there are no immediate complications ESTIMATED BLOOD LOSS: None SPECIMENS REMOVED: None COMPLICATIONS: None IMPRESSION: Normal EGD Successful PEG placement PLAN: 1. May use PEG tube for medications today 2. May start feeding tomorrow 3. May obtain nutritional consult for tube feeding 4. Flush tube with 50 cc of water every 4-6 hours 5. Always flush tube after feedings 6. Apply abdominal binder as necessary 7. Clamp G-tube after use and flush. Grady Harry MD Sep 26, 2017 13:29
--- NOTE | 2017-09-26 15:02 | HHI.PR ---
Subjective Remarks Pt had PEG tube placed today Sister at bedside Pt appears to have some increased work of breathing at the time of examination Oxygen saturations were in the low 90's on RA Objective Vitals Vital Signs Date Time Temp Pulse Resp B/P (MAP) Pulse Ox O2 Delivery O2 Flow Rate FiO2 09/26/17 13:58 97.2 64 16 149/66 (93) 97 09/26/17 13:29 94 09/26/17 11:15 82 09/26/17 08:00 98.6 77 23 204/87 (126) 92 09/26/17 07:05 Room Air 09/26/17 04:00 97.3 76 20 176/78 (110) 93 09/26/17 00:00 97.8 79 20 186/77 (113) 92 09/25/17 20:00 97.9 78 20 185/91 (122) 92 09/25/17 19:00 Room Air 21 09/25/17 16:00 66 09/25/17 16:00 98.3 74 18 215/94 (134) 94 09/26/17 09/26/17 09/27/17 15:00 23:00 07:00 Intake Total 200 ml Output Total 1 ml Balance 199 ml IV Total 200 ml Estimated Blood Loss 1 ml Result Diagram: 09/25/17 0749 09/26/17 0642 Other Results Laboratory Tests Test 09/25/17 07:49 09/26/17 06:42 White Blood Count 10.4 TH/MM3 Red Blood Count 4.52 MIL/MM3 Hemoglobin 12.2 GM/DL Hematocrit 37.4 % Mean Corpuscular Volume 82.7 FL Mean Corpuscular Hemoglobin 26.9 PG Mean Corpuscular Hemoglobin Concent 32.5 % Red Cell Distribution Width 13.2 % Platelet Count 187 TH/MM3 Mean Platelet Volume 8.0 FL Neutrophils (%) (Auto) 69.0 % Lymphocytes (%) (Auto) 15.8 % Monocytes (%) (Auto) 10.8 % Eosinophils (%) (Auto) 3.8 % Basophils (%) (Auto) 0.6 % Neutrophils # (Auto) 7.2 TH/MM3 Lymphocytes # (Auto) 1.6 TH/MM3 Monocytes # (Auto) 1.1 TH/MM3 Eosinophils # (Auto) 0.4 TH/MM3 Basophils # (Auto) 0.1 TH/MM3 CBC Comment DIFF FINAL Differential Comment Blood Urea Nitrogen 32 MG/DL 26 MG/DL Creatinine 0.81 MG/DL 0.65 MG/DL Random Glucose 144 MG/DL 103 MG/DL Calcium Level 9.5 MG/DL 9.1 MG/DL Sodium Level 151 MEQ/L 150 MEQ/L Potassium Level 3.5 MEQ/L 3.4 MEQ/L Chloride Level 118 MEQ/L 118 MEQ/L Carbon Dioxide Level 23.4 MEQ/L 24.1 MEQ/L Anion Gap 10 MEQ/L 8 MEQ/L Estimat Glomerular Filtration Rate 83 ML/MIN 106 ML/MIN Imaging Last Impressions Head CT 09/24/17 0600 Signed Impressions: Service Date/Time: Sunday, September 24, 2017 04:12 - CONCLUSION: Continued maturation of a left frontoparietal nonhemorrhagic infarct. Oseas Livingston Jr., MD Abdomen X-Ray 09/24/17 0000 Signed Impressions: Service Date/Time: Sunday, September 24, 2017 11:43 - CONCLUSION: Feeding tube placement with tip projected over the mid stomach. Brown Pinedo MD Chest X-Ray 09/23/17 0000 Signed Impressions: Service Date/Time: Saturday, September 23, 2017 23:26 - CONCLUSION: No acute disease. Oseas Livingston Jr., MD Carotid Artery Ultrasound 09/21/17 0000 Signed Impressions: Service Date/Time: Thursday, September 21, 2017 09:37 - CONCLUSION: Limited exam by patient habitus. Negative for hemodynamically significant stenosis. Alin Richard MD FACR Head Magnetic Resonance Angiography 09/20/17 0000 Signed Impressions: Service Date/Time: Wednesday, September 20, 2017 16:00 - CONCLUSION: 1. Distal left ICA occlusion extending intracranially and involving the left anterior and middle cerebral arteries. 2. Intact right cerebral and vertebrobasilar circulation. Pedro Reveles MD Brain MRI 09/20/17 0000 Signed Impressions: Service Date/Time: Wednesday, September 20, 2017 16:00 - CONCLUSION: 1. Large evolving infarct in the anterior and middle cerebral artery distributions as a consequence of distal left ICA occlusion extending into the anterior and middle cerebral arteries. 2. No evidence of associated hemorrhage or significant mass effect. 3. Unremarkable right cerebral hemisphere, brainstem or cerebellum. Pedro Reveles MD Objective Remarks General: NAD, opens eyes but nonverbal Chest: Increased respiratory effort, Cardiac: Regular Abd: +BS, soft nondistended Ext: Right side hemiparesis A/P Problem List: (1) Left acute arterial ischemic stroke, MCA (middle cerebral artery) ICD Codes: I63.512 - Cerebral infarction due to unspecified occlusion or stenosis of left middle cerebral artery Status: Acute Plan: - Pt is a 77 y/o female wth hypertension and hx of DVT who was found laying on the floor unresponsive at home with facial asymmetry and minimally arousable on 09/20/17. She was last known to be okay the night before presentation. Patient was found to have right-sided weakness. - Head CT (09/20) --> Left MCA territory ischemic infarct which appeared to be subacute in nature. - Pt was admitted to ICU under the care of the intensivists and neurology - MRI Brain (09/20) --> Large evolving infarct in the anterior and middle cerebral artery distributions as a consequence of distal left ICA occlusion extending into the anterior and middle cerebral arteries. No evidence of associated hemorrhage or significant mass effect. Unremarkable right cerebral hemisphere, brainstem or cerebellum. - MRA Brain (09/20) --> Distal left ICA occlusion extending intracranially and involving the left anterior and middle cerebral arteries. Intact right cerebral and vertebrobasilar circulation. - Repeat Head CT (09/24) --> Again seen is a large area of low density involving the left frontal and parietal lobes. This is consistent with a nonhemorrhagic infarction. The area of infarction is stable from the prior study. It shows continued decrease in density. There is some mass effect with 5 mm of [id number] midline shift. There is effacement of the left lateral ventricle. Ventricles are otherwise normal in size. Air fluid level seen involving the left maxillary sinus. Remaining paranasal sinuses and mastoid air cells are clear. - Pt with continued right hemiparesis and is nonverbal secondary to her distal left ICA occlusion extending into the anterior and middle cerebral arteries - She had been on TF - PEG tube placed on 09/26 - Dietary recommending Jevity 1.5 with goal rate of 50mL/hr - Pt is on permissive HTN and lower when ok with neurology - She is currently on asa and DVT prophylaxis with Lovenox. - Pt was on Eliquis prior to admission for DVT. Resume when ok with neurology. - Cont. PT/OT/ST - Pt with overall poor prognosis especially in the setting of newly found lung masses and liver mass, concerning for metastatic cancer. - Appreciate palliative care assistance as there seems to be some family dynamic issues and pt has no legal documentation for POA/HCS. - Pt has three children, one daughter lives locally and the other two are in [place]. - Pt would be appropriate for DNR and comfort/hospice care but at this time pt is a full code. (2) Lung mass ICD Codes: R91.8 - Other nonspecific abnormal finding of lung field Status: Acute Plan: - Pt had been seen by Dr. Norris recently as an outpt for evaluation of unprovoked DVT. - She was sent for a CT which revealed lung masses, a 3.9 x 2.5cm mass in medial posterior left lower lung with 2.2 cm posterior mediastinal lymph node suspicious for lung cancer, multiple tiny scattered lung nodules, and a 2.2 cm liver lesion suspicious for mets lung cancer. - Pt had been planned for evaluation with a PET/CT scan but ended up hospitalized with CVA. (3) Rhabdomyolysis ICD Codes: M62.82 - Rhabdomyolysis Status: Acute Plan: - Cont IVF (4) HTN (hypertension) ICD Codes: I10 - Essential (primary) hypertension Status: Chronic Plan: - Pt is on permissive HTN until ok with neurology to lower - Vasotec PRN (5) Hx of deep venous thrombosis ICD Codes: Z86.718 - Personal history of other venous thrombosis and embolism Status: Chronic Assessment and Plan Patient examined. Assessment and plan formulated with Laila Ng PA-C. I agree with the above. Pt unresponsive. Worsening respiratory status. Greatly appreciate input from Palliative Medicine Service, Danny ALLEN. Family agreed to DNR Laila Ng Sep 26, 2017 15:02 Alex March DO Sep 27, 2017 15:02
[2017-09-26 16:00] VITALS: BP 178/76; PULSE 74; RESP 26; TEMP 98.2; O2SAT 91
--- NOTE | 2017-09-26 18:07 | HHI.HCPN ---
Reason for visit a. To assist with evaluation and management of symptoms including: dysphagia , weakness. b. To assist medical decision maker(s) with: better understanding of current medical conditions; weighing benefits/burdens of medical treatment options; making medical treatment decisions. Subjective/Interval History Called by Dr. March to see patient as she is appears to be declining. Upon arrival to the unit he indicates family is in disagreement regarding goals of medical treatment and asks for my assistance to clarify. Discussed with Dr. March and Laila Rao. According to [place] statutes, healthcare proxy decision making falls to the majority of adult children. Patient has 2 daughters and 1 son, advised in order to clarify CODE STATUS I will need to speak with all 3 children. Patient seen and examined in room on . SisterMindi at bedside. Patient is tachypneic, rate > 30 per minute with accessory muscle use. 4pm oxygen saturation 91%. She has had intermittent hypertension. She eventually opens eyes briefly to sternal rub/ noxious stimuli. She is not tracking or blinking to threat. Post PEG tube earlier today, site with dressing intact slight pink drainage noted on dressing. Labs and imaging reviewed since my last visit. Chemistry today reveals: sodium 150, potassium 3.4, chloride 118. Cultures remain negative to date. 09/24/17 CT head revealed continued maturation of large left frontoparietal nonhemorrhagic infarct. . Family/friend interactions Spoke with sisterMindi at bedside she is not a legal decision maker. She indicates patient has always told family she Called to speak with daughterFarhana via telephone. Medical update provided. She indicates that she had a recent conversation with her mother after she was diagnosed with blood clot in which the patient advised that she does not want resuscitation or mechanical ventilation. 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 She would elect NO CODE (DNR/DNI). Called to speak with daughterIzzy via telephone. Medical update provided. She indicates that patient would not want to be prolonged by machines , but she wants to give her a chance. 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 She desires FULL CODE. Left message for sonDillon to return call. He returned call. Medical update provided. He indicates that his mother is not improving clinically from his visit last week. He tells me she has been clear that she wants to peacefully and naturally and would elect NO CODE. 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 He elects NO CODE (DNR/DNI). After call with Dillon, I attempted to call daughter, Izzy to see if she would agree with her siblings decision for NO CODE, left message for her to return call. I then called from my cell phone, Izzy answered the phone. I advised of the conversation with her siblings. She is now in agreement to NO CODE order, she tells me she will spend the night with patient. Left message for Farhana to provide update. NO CODE order entered and nurse notified. Family requests palliative care proceed with conference call at 9: 30am. Family appreciates calls. . Advance Directives Living Will: Never completed Health Care Surrogate: Never completed Durable Power of Mechanic Helper: Never completed Advance Directive Specifics Health Care Surrogate(s): Patient is not capacitated to make her own healthcare decisions, will not likely regain capacity given large MCA stroke. No written advanced directives. . According to [place] statutes, healthcare proxy decision making falls to the majority of adult children. Patient has 1 son and 2 daughters. . Documented care wishes: No written advanced directives. . Significant change in goals: NO CODE elected. Continue aggressive care short of DNR/DNI for now. . Objective Vital Signs Date Time Temp Pulse Resp B/P (MAP) Pulse Ox O2 Delivery O2 Flow Rate FiO2 09/26/17 16:00 98.2 74 26 178/76 (110) 91 09/26/17 13:58 97.2 64 16 149/66 (93) 97 09/26/17 13:29 94 09/26/17 11:15 82 09/26/17 08:00 98.6 77 23 204/87 (126) 92 09/26/17 07:05 Room Air 09/26/17 04:00 97.3 76 20 176/78 (110) 93 09/26/17 00:00 97.8 79 20 186/77 (113) 92 09/25/17 20:00 97.9 78 20 185/91 (122) 92 09/25/17 19:00 Room Air 21 Intake & Output 4/23/18 4/23/18 07:00 19:00 Intake Total 760 ml 200 ml Output Total 1 ml Balance 760 ml 199 ml IV Total 200 ml Tube Feeding 700 ml Tube Irrigant 60 ml Estimated Blood Loss 1 ml Physical Exam CONSTITUTIONAL/GENERAL: This is an adequately nourished patient, in no apparent distress. TUBES/LINES/DRAINS: PEG, PIV right, Catheter, SCDs. SKIN: No jaundice, rashes, or lesions. Ecchymoses on upper extremities. No wounds seen anteriorly. Skin temperature appropriate. Not diaphoretic. CARDIOVASCULAR: Regular rate and rhythm without murmurs, gallops, or rubs. RESPIRATORY/CHEST: Labored respirations at rest with accessory muscle use. Shallow respirations, rate >30. GASTROINTESTINAL: Abdomen soft, nondistended. PEG tube. GENITOURINARY: Without palpable bladder distension. MUSCULOSKELETAL: Extremities without clubbing, cyanosis, or edema. No mottling or clubbing. NEUROLOGICAL: Arouses briefly, after sternal rub and painful stimuli. Non- verbal. PSYCHIATRIC: No obvious anxiety/depression. no apparent hallucinations or other psychotic thought process. . Diagnostic Tests Laboratory Laboratory Tests Test 09/25/17 07:49 09/26/17 06:42 White Blood Count 10.4 TH/MM3 (4.0-11.0) Red Blood Count 4.52 MIL/MM3 (4.00-5.30) Hemoglobin 12.2 GM/DL (11.6-15.3) Hematocrit 37.4 % (35.0-46.0) Mean Corpuscular Volume 82.7 FL (80.0-100.0) Mean Corpuscular Hemoglobin 26.9 PG (27.0-34.0) Mean Corpuscular Hemoglobin Concent 32.5 % (32.0-36.0) Red Cell Distribution Width 13.2 % (11.6-17.2) Platelet Count 187 TH/MM3 (150-450) Mean Platelet Volume 8.0 FL (7.0-11.0) Neutrophils (%) (Auto) 69.0 % (16.0-70.0) Lymphocytes (%) (Auto) 15.8 % (9.0-44.0) Monocytes (%) (Auto) 10.8 % (0.0-8.0) Eosinophils (%) (Auto) 3.8 % (0.0-4.0) Basophils (%) (Auto) 0.6 % (0.0-2.0) Neutrophils # (Auto) 7.2 TH/MM3 (1.8-7.7) Lymphocytes # (Auto) 1.6 TH/MM3 (1.0-4.8) Monocytes # (Auto) 1.1 TH/MM3 (0-0.9) Eosinophils # (Auto) 0.4 TH/MM3 (0-0.4) Basophils # (Auto) 0.1 TH/MM3 (0-0.2) CBC Comment DIFF FINAL Differential Comment Blood Urea Nitrogen 32 MG/DL (7-18) 26 MG/DL (7-18) Creatinine 0.81 MG/DL (0.50-1.00) 0.65 MG/DL (0.50-1.00) Random Glucose 144 MG/DL (74-106) 103 MG/DL (74-106) Calcium Level 9.5 MG/DL (8.5-10.1) 9.1 MG/DL (8.5-10.1) Sodium Level 151 MEQ/L (136-145) 150 MEQ/L (136-145) Potassium Level 3.5 MEQ/L (3.5-5.1) 3.4 MEQ/L (3.5-5.1) Chloride Level 118 MEQ/L (98-107) 118 MEQ/L (98-107) Carbon Dioxide Level 23.4 MEQ/L (21.0-32.0) 24.1 MEQ/L (21.0-32.0) Anion Gap 10 MEQ/L (5-15) 8 MEQ/L (5-15) Estimat Glomerular Filtration Rate 83 ML/MIN (>89) 106 ML/MIN (>89) Result Diagram: 09/25/17 0749 09/26/17 0642 Microbiology Microbiology Date/Time Source Procedure Growth Status 09/20/17 08:26 Blood Peripheral Aerobic Blood Culture - Final NO GROWTH IN 5 DAYS Complete 09/20/17 08:26 Blood Peripheral Anaerobic Blood Culture - Final NO GROWTH IN 5 DAYS Complete 09/20/17 08:26 Urine Catheterized Urine Urine Culture - Final NO GROWTH IN 48 HOURS. Complete Imaging Last Impressions Head CT 09/24/17 0600 Signed Impressions: Service Date/Time: Sunday, September 24, 2017 04:12 - CONCLUSION: Continued maturation of a left frontoparietal nonhemorrhagic infarct. Oseas Livingston Jr., MD Abdomen X-Ray 09/24/17 0000 Signed Impressions: Service Date/Time: Sunday, September 24, 2017 11:43 - CONCLUSION: Feeding tube placement with tip projected over the mid stomach. Brown Pinedo MD Chest X-Ray 09/23/17 0000 Signed Impressions: Service Date/Time: Saturday, September 23, 2017 23:26 - CONCLUSION: No acute disease. Oseas Livingston Jr., MD Carotid Artery Ultrasound 09/21/17 0000 Signed Impressions: Service Date/Time: Thursday, September 21, 2017 09:37 - CONCLUSION: Limited exam by patient habitus. Negative for hemodynamically significant stenosis. Alin Richard MD FACR Head Magnetic Resonance Angiography 09/20/17 0000 Signed Impressions: Service Date/Time: Wednesday, September 20, 2017 16:00 - CONCLUSION: 1. Distal left ICA occlusion extending intracranially and involving the left anterior and middle cerebral arteries. 2. Intact right cerebral and vertebrobasilar circulation. Pedro Reveles MD Brain MRI 09/20/17 0000 Signed Impressions: Service Date/Time: Wednesday, September 20, 2017 16:00 - CONCLUSION: 1. Large evolving infarct in the anterior and middle cerebral artery distributions as a consequence of distal left ICA occlusion extending into the anterior and middle cerebral arteries. 2. No evidence of associated hemorrhage or significant mass effect. 3. Unremarkable right cerebral hemisphere, brainstem or cerebellum. Pedro Reveles MD Procedures * 09/26/17 - PEG tube. * Dobbhoff placement . Assessment and Plan Disease Oriented Problem List: (1) Left acute arterial ischemic stroke, MCA (middle cerebral artery) (2) Dysphagia Comment: plan for PEG tube (3) Lung mass Comment: Dr. Norris has seen this patient for 3.9 x 2.5cm mass in medial posterior left lower lung with 2.2 cm posterior mediastinal lymph node suspicious for lung cancer, multiple tiny scattered lung nodules, 2.2 cm liver lesion suspicious for mets lung cancer. On 09/14/17,he recommended PET/CT scan and repeat LE ultrasound (was supposed to be done 09/23, however she remains in ICU). Symptom Scale: (1) Weakness 0-10 Scale: Unable to quantify (2) Dysphagia 0-10 Scale: Unable to quantify Pertinent Non-Medical Issues Psychosocial: .1 son and 2 daughters. Spiritual: Bahai loco. Shakeel Bailey has been to visit patient. Daughter notified. Legal:Patient is not capacitated to make her own healthcare decisions, will not likely regain capacity given large MCA stroke. No written advanced directives. . According to [place] statutes, healthcare proxy decision making falls to the majority of adult children. Patient has 1 son and 2 daughters. Ethical issues impacting care: No known concerns at this time. . Important Contacts * Izzy Bruce, daughter: [phone] * Farhana Barboza, daughter: [phone] * Dillon Mejia, son: [phone] . Prognosis Ms. Barboza is a 77-year-old female admitted with large left MCA stroke. She was recently found to have lung mass, bilateral lung nodules and liver mass suspicious for lung cancer. She is high risk for aspiration and further decline. Life expectancy likely limited given her advanced age and current health problems. . Code Status: No Code Plan * Patient is not capacitated to make her own healthcare decisions, will not likely regain capacity given large MCA stroke. No written advanced directives. . According to [place] statutes, healthcare proxy decision making falls to the majority of adult children. Patient has 1 son (Dillon Mejia) and 2 daughters (Izzy Bruce and Farhana Barboza). * NO CODE (DNR/DNI). * After multiple conversations with all 3 children, they have agreed to NO CODE (DNR/DNI). Plan for palliative care family meeting/ conference call 09/27/17 at 9 :30am. * Discussed with Dr. March and nursing staff. * SYMPTOMS: Dysphagia: PEG tube placed 09/26. Weakness: due to possible mets lung cancer and recent large left MCA infarct, unlikely unable to rehabilitate. Tachypnea: shallow labored respirations, oxygen sat 91%. * Palliative care will continue to follow to assist with symptom management, communication and further clarification of medical treatment goals as needed. . Attestation To help prompt me to consider important information that might be impacting today's encounter and assessment, information from prior notes written by myself or my colleagues may have been "brought forward" into today's note. My signature on this note, however, is an attestation that I personally performed the exam, history, and/or decision-making noted today, and, unless otherwise indicated, the interactions with patient, family, and staff as well as the review of records all occurred today. I also attest that the listed assessment and stated plan reflect my best clinical judgment today based on the combination of historical information, prior notes, and today's exam/ interactions. When time spent is documented, it refers only to time spent today by the signer, or if indicated, combined time spent today by collaborating physician/nurse practitioner. . Latisha Gómez Sep 26, 2017 18:07
[2017-09-26 20:00] VITALS: BP 198/81; PULSE 96; RESP 22; TEMP 99.8; O2SAT 95
[2017-09-26] MEDS: CHLORHEXIDINE GLUCONATE 2 % 1 PACK (2 CLOTHS) TOP SCH (21:10)
[2017-09-26] MEDS: LATANOPROST 0.005% OPHT SOLN 2.5 ML BTL EACH EYE SCH (21:14)
[2017-09-27] VITALS: BP 176/84; PULSE 86; RESP 24; TEMP 100.3; O2SAT 94
[2017-09-27 04:00] VITALS: BP 190/82; PULSE 75; RESP 28; TEMP 98.7; O2SAT 94
[2017-09-27 07:57] VITALS: BP 192/83; PULSE 74; RESP 22; TEMP 97.9; O2SAT 92
[2017-09-27] MEDS: SODIUM CHLOR 0.45% 1000 ML INJ 1,000 ML IV SCH ×2 (10:24→21:14)
[2017-09-27] MEDS: BRIMONIDINE TARTRATE 0.2% OPHT SOLN 5 ML BTL EACH EYE SCH ×2 (10:58→21:14)
[2017-09-27] MEDS: SODIUM CHLORIDE 0.9% FLUSH 10 ML FLUSH IV FLUSH SCH ×2 (10:59→21:15)
[2017-09-27] MEDS: DORZOLAMIDE/TIMOLOL OPTH SOLN 10 ML BTL EACH EYE SCH ×2 (10:59→21:14)
[2017-09-27] MEDS: FAMOTIDINE 20 MG/2 ML VIAL IV PUSH SCH (11:00)
[2017-09-27] MEDS: ASPIRIN 325 MG TAB PO SCH (11:01)
--- NOTE | 2017-09-27 11:34 | HHI.GIFU ---
Subjective Remarks Laying in the bed appears comfortable Nonverbal Gastric tube with dressing clean dry and intact no erythema noted, clamped Current hemoglobin 12.4 Afebrile (Molly Dean) Objective Vitals I&O Vital Signs Date Time Temp Pulse Resp B/P (MAP) Pulse Ox O2 Delivery O2 Flow Rate FiO2 09/27/17 07:57 97.9 74 22 192/83 (119) 92 09/27/17 04:00 98.7 75 28 190/82 (118) 94 09/27/17 00:00 100.3 86 24 176/84 (114) 94 09/26/17 20:00 99.8 96 22 198/81 (120) 95 09/26/17 19:00 Room Air 21 09/26/17 16:00 98.2 74 26 178/76 (110) 91 09/26/17 13:58 97.2 64 16 149/66 (93) 97 09/26/17 13:29 94 I/O 09/26/17 09/26/17 09/26/17 09/27/17 09/27/17 09/27/17 07:00 15:00 23:00 07:00 15:00 23:00 Intake Total 200 ml Output Total 1 ml 1200 ml Balance 199 ml -1200 ml IV Total 200 ml Output Urine Total 1200 ml Estimated Blood Loss 1 ml Laboratory Date/Time Source Procedure Growth Status 09/20/17 08:26 Blood Peripheral Aerobic Blood Culture - Final NO GROWTH IN 5 DAYS Complete 09/20/17 08:26 Blood Peripheral Anaerobic Blood Culture - Final NO GROWTH IN 5 DAYS Complete 09/20/17 08:26 Urine Catheterized Urine Urine Culture - Final NO GROWTH IN 48 HOURS. Complete Imaging Last Impressions Head CT 09/24/17 0600 Signed Impressions: Service Date/Time: Sunday, September 24, 2017 04:12 - CONCLUSION: Continued maturation of a left frontoparietal nonhemorrhagic infarct. Oseas Livingston Jr., MD Abdomen X-Ray 09/24/17 0000 Signed Impressions: Service Date/Time: Sunday, September 24, 2017 11:43 - CONCLUSION: Feeding tube placement with tip projected over the mid stomach. Brown Pinedo MD Chest X-Ray 09/23/17 0000 Signed Impressions: Service Date/Time: Saturday, September 23, 2017 23:26 - CONCLUSION: No acute disease. Oseas Livingston Jr., MD Carotid Artery Ultrasound 09/21/17 0000 Signed Impressions: Service Date/Time: Thursday, September 21, 2017 09:37 - CONCLUSION: Limited exam by patient habitus. Negative for hemodynamically significant stenosis. Alin Richard MD FACR Head Magnetic Resonance Angiography 09/20/17 0000 Signed Impressions: Service Date/Time: Wednesday, September 20, 2017 16:00 - CONCLUSION: 1. Distal left ICA occlusion extending intracranially and involving the left anterior and middle cerebral arteries. 2. Intact right cerebral and vertebrobasilar circulation. Pedro Reveles MD Brain MRI 09/20/17 0000 Signed Impressions: Service Date/Time: Wednesday, September 20, 2017 16:00 - CONCLUSION: 1. Large evolving infarct in the anterior and middle cerebral artery distributions as a consequence of distal left ICA occlusion extending into the anterior and middle cerebral arteries. 2. No evidence of associated hemorrhage or significant mass effect. 3. Unremarkable right cerebral hemisphere, brainstem or cerebellum. Pedro Reveles MD Physical Exam HEENT: Normocephalic; atraumatic, currently not tracking bolus with her eyes CHEST: Even/unlabored, low volumes, no obvious rhonchi CARDIAC: RRR ABDOMEN: Round, soft, nondistended, bowel sounds active . Gastric tube clamped dressing clean dry and intact SKIN: Normal; no rash; no jaundice. 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 S/P brain MRI revealed large evolving infarct in the anterior and MCA distributions as a consequence of distal left ICU occlusion extending into the anterior and middle cerebral arteries. Pt was not a candidate for TPA or IR intervention given an unknown time from start of symptoms. History of DVT- On Eliquis at home, currently on hold- On Lovenox Currently TF, Jevity, through Dobbhoff at 60 mL/hr KUB (09/22) Nasoenteric catheter tip overlies the region of the mid stomach. Air is seen throughout the colon. No significant dilated loops of bowel. - Unable to obtain history, pt nonverbal (09/24) --> Dobhoff pulled out overnight. Pts condition remains the same. 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 Replaced Dobhoff if needed over the weekend. (09/25) Dobbhoff replaced, currently in R nostril. Tube feeding is off. 09/27/17, S/P EGD , PEG placement on 09/26/17, Normal EGD, No Complications. Nutritional consult for tube feeding, which had already made recommendation. PLAN: PEG for feedings and medications. Jevity 1.5 with goal rate 50mL/hr was recommendation, start feedings today at 20 cc an hour Monitor residual every 4 hours goal rate is 50 cc an hour. Flush tube with 50 cc of water every 4-6 hours and after feedings/meds Apply abdominal binder as necessary Clamp G-tube after use and flush. Supportive care GI will follow as needed. No other plans are procedures for now Pt has been seen and examined by myself and Dr. Harry and this note is written on his behalf (Molly Dean) Physician Comments Patient seen and examined Agree with above Continue with current supportive care Monitor lab We will sign off (Grady Harry MD) Molly Dean Sep 27, 2017 11:34 Grady Harry MD Sep 27, 2017 20:11
[2017-09-27 11:37] VITALS: BP 193/86; PULSE 65; RESP 22; TEMP 98; O2SAT 94
--- NOTE | 2017-09-27 12:13 | HHI.HCPN ---
Reason for visit a. To assist with evaluation and management of symptoms including: dysphagia , weakness, tachypnea. b. To assist medical decision maker(s) with: better understanding of current medical conditions; weighing benefits/burdens of medical treatment options; making medical treatment decisions. . Subjective/Interval History Patient seen and examined in room on . SisterMindi at bedside. Patient is tachypneic, rate 28 per minute with accessory muscle use. Patient remains unresponsive to voice or exam. Tmax 100.3. BP 193/86. Post PEG tube 09/26/17, site with dressing intact slight pink drainage noted on dressing. No new labs or imaging today. . Family/friend interactions I arrived on unit to meet with daughterIzzy and have family conference call. Izzy was not on unit. Called for conference call, shelby Magana and Farhana did not answer calls (left message). Son Dillon was the only child who answered for our planned 9:30am conference call. He is interested in hospice services for his mother and requests I send him a list of local hospice organizations to his email ([email or web address]). He will speak with his siblings and let me know their decision about transition to comfort and hospice services. Patient's sister, Mindi arrived to bedside. Update provided on status after conference call per her request. She requests I send email of hospice organization to patient's daughterFarhana ([email or web address] Email sent to son and daughter. Messages left for Farhana and Izzy to return my call regarding further clarification of treatment goals. 12:34pm Email from daughterFarhana to report her choice for Hospice would be [facility]. Responded I need to hear from her siblings also. Call from sisterMindi that children have asked her to go visit the [facility] before they make a decision regarding hospice services. . Advance Directives Living Will: Never completed Health Care Surrogate: Never completed Durable Power of Platen Press Operator Apprentice: Never completed Advance Directive Specifics Health Care Surrogate(s): Patient is not capacitated to make her own healthcare decisions, will not likely regain capacity given large MCA stroke. No written advanced directives. . According to [place] statutes, healthcare proxy decision making falls to the majority of adult children. Patient has 1 son and 2 daughters. . Documented care wishes: No written advanced directives. . Significant change in goals: NO CODE. Awaiting family decision regarding continued aggressive care vs transition to comfort measures with hospice support. . Objective Vital Signs Date Time Temp Pulse Resp B/P (MAP) Pulse Ox O2 Delivery O2 Flow Rate FiO2 09/27/17 11:37 98.0 65 22 193/86 (121) 94 09/27/17 07:57 97.9 74 22 192/83 (119) 92 09/27/17 04:00 98.7 75 28 190/82 (118) 94 09/27/17 00:00 100.3 86 24 176/84 (114) 94 09/26/17 20:00 99.8 96 22 198/81 (120) 95 09/26/17 19:00 Room Air 21 09/26/17 16:00 98.2 74 26 178/76 (110) 91 09/26/17 13:58 97.2 64 16 149/66 (93) 97 09/26/17 13:29 94 Physical Exam CONSTITUTIONAL/GENERAL: This is an adequately nourished patient, in no apparent distress. TUBES/LINES/DRAINS: PIV, PEG tube, catheter. SKIN: PEG tube dressing in place. Skin temperature appropriate. Not diaphoretic. CARDIOVASCULAR: Regular rate and rhythm without murmurs. RESPIRATORY/CHEST: Labored respirations at rest. + accessory muscle use. course breath sounds. GASTROINTESTINAL: Abdomen soft, nondistended. PEG tube. GENITOURINARY: Without palpable bladder distension. MUSCULOSKELETAL: Extremities without clubbing, cyanosis, or edema. No mottling or clubbing. NEUROLOGICAL: Does not open eyes to voice or exam. PSYCHIATRIC: No obvious anxiety/depression. no apparent hallucinations or other psychotic thought process. . Diagnostic Tests Laboratory Laboratory Tests Test 09/25/17 07:49 09/26/17 06:42 White Blood Count 10.4 TH/MM3 (4.0-11.0) Red Blood Count 4.52 MIL/MM3 (4.00-5.30) Hemoglobin 12.2 GM/DL (11.6-15.3) Hematocrit 37.4 % (35.0-46.0) Mean Corpuscular Volume 82.7 FL (80.0-100.0) Mean Corpuscular Hemoglobin 26.9 PG (27.0-34.0) Mean Corpuscular Hemoglobin Concent 32.5 % (32.0-36.0) Red Cell Distribution Width 13.2 % (11.6-17.2) Platelet Count 187 TH/MM3 (150-450) Mean Platelet Volume 8.0 FL (7.0-11.0) Neutrophils (%) (Auto) 69.0 % (16.0-70.0) Lymphocytes (%) (Auto) 15.8 % (9.0-44.0) Monocytes (%) (Auto) 10.8 % (0.0-8.0) Eosinophils (%) (Auto) 3.8 % (0.0-4.0) Basophils (%) (Auto) 0.6 % (0.0-2.0) Neutrophils # (Auto) 7.2 TH/MM3 (1.8-7.7) Lymphocytes # (Auto) 1.6 TH/MM3 (1.0-4.8) Monocytes # (Auto) 1.1 TH/MM3 (0-0.9) Eosinophils # (Auto) 0.4 TH/MM3 (0-0.4) Basophils # (Auto) 0.1 TH/MM3 (0-0.2) CBC Comment DIFF FINAL Differential Comment Blood Urea Nitrogen 32 MG/DL (7-18) 26 MG/DL (7-18) Creatinine 0.81 MG/DL (0.50-1.00) 0.65 MG/DL (0.50-1.00) Random Glucose 144 MG/DL (74-106) 103 MG/DL (74-106) Calcium Level 9.5 MG/DL (8.5-10.1) 9.1 MG/DL (8.5-10.1) Sodium Level 151 MEQ/L (136-145) 150 MEQ/L (136-145) Potassium Level 3.5 MEQ/L (3.5-5.1) 3.4 MEQ/L (3.5-5.1) Chloride Level 118 MEQ/L (98-107) 118 MEQ/L (98-107) Carbon Dioxide Level 23.4 MEQ/L (21.0-32.0) 24.1 MEQ/L (21.0-32.0) Anion Gap 10 MEQ/L (5-15) 8 MEQ/L (5-15) Estimat Glomerular Filtration Rate 83 ML/MIN (>89) 106 ML/MIN (>89) Result Diagram: 09/25/17 0749 09/26/17 0642 Microbiology Microbiology Date/Time Source Procedure Growth Status 09/20/17 08:26 Blood Peripheral Aerobic Blood Culture - Final NO GROWTH IN 5 DAYS Complete 09/20/17 08:26 Blood Peripheral Anaerobic Blood Culture - Final NO GROWTH IN 5 DAYS Complete 09/20/17 08:26 Urine Catheterized Urine Urine Culture - Final NO GROWTH IN 48 HOURS. Complete Imaging Last Impressions Head CT 09/24/17 0600 Signed Impressions: Service Date/Time: Sunday, September 24, 2017 04:12 - CONCLUSION: Continued maturation of a left frontoparietal nonhemorrhagic infarct. Oseas Livingston Jr., MD Abdomen X-Ray 09/24/17 0000 Signed Impressions: Service Date/Time: Sunday, September 24, 2017 11:43 - CONCLUSION: Feeding tube placement with tip projected over the mid stomach. Brown Pinedo MD Chest X-Ray 09/23/17 0000 Signed Impressions: Service Date/Time: Saturday, September 23, 2017 23:26 - CONCLUSION: No acute disease. Oseas Livingston Jr., MD Carotid Artery Ultrasound 09/21/17 0000 Signed Impressions: Service Date/Time: Thursday, September 21, 2017 09:37 - CONCLUSION: Limited exam by patient habitus. Negative for hemodynamically significant stenosis. Alin Richrad MD FACR Head Magnetic Resonance Angiography 09/20/17 0000 Signed Impressions: Service Date/Time: Wednesday, September 20, 2017 16:00 - CONCLUSION: 1. Distal left ICA occlusion extending intracranially and involving the left anterior and middle cerebral arteries. 2. Intact right cerebral and vertebrobasilar circulation. Pedro Reveles MD Brain MRI 09/20/17 0000 Signed Impressions: Service Date/Time: Wednesday, September 20, 2017 16:00 - CONCLUSION: 1. Large evolving infarct in the anterior and middle cerebral artery distributions as a consequence of distal left ICA occlusion extending into the anterior and middle cerebral arteries. 2. No evidence of associated hemorrhage or significant mass effect. 3. Unremarkable right cerebral hemisphere, brainstem or cerebellum. Pedro Reveles MD Procedures * 09/26/17 - PEG tube * Dobbhoff placement, later removed . Assessment and Plan Disease Oriented Problem List: (1) Left acute arterial ischemic stroke, MCA (middle cerebral artery) (2) Dysphagia Comment: plan for PEG tube (3) Lung mass Comment: Dr. Norris has seen this patient for 3.9 x 2.5cm mass in medial posterior left lower lung with 2.2 cm posterior mediastinal lymph node suspicious for lung cancer, multiple tiny scattered lung nodules, 2.2 cm liver lesion suspicious for mets lung cancer. On 09/14/17,he recommended PET/CT scan and repeat LE ultrasound (was supposed to be done 09/23, however she remains in ICU). Symptom Scale: (1) Weakness 0-10 Scale: Unable to quantify (2) Dysphagia 0-10 Scale: Unable to quantify Pertinent Non-Medical Issues Psychosocial: .1 son and 2 daughters. Spiritual: [employer] loco. Shakeel Bailey has been to visit patient. Daughter notified. Legal:Patient is not capacitated to make her own healthcare decisions, will not likely regain capacity given large MCA stroke. No written advanced directives. . According to [place] statutes, healthcare proxy decision making falls to the majority of adult children. Patient has 1 son and 2 daughters. Ethical issues impacting care: No known concerns at this time. . Important Contacts * Izzy Bruce, daughter: [phone] * Farhana Barboza, daughter: [phone] * Dillon Mejia, son: [phone] . Prognosis Ms. Barboza is a 77-year-old female admitted with large left MCA stroke. She was recently found to have lung mass, bilateral lung nodules and liver mass suspicious for lung cancer. She is high risk for aspiration and further decline. Life expectancy likely limited given her advanced age and current health problems. . Code Status: No Code Plan * Patient is not capacitated to make her own healthcare decisions, will not likely regain capacity given large MCA stroke. No written advanced directives. . According to [place] statutes, healthcare proxy decision making falls to the majority of adult children. Patient has 1 son (Dillon Mejia) and 2 daughters (Izzy Bruce and Farhana Barboza). * NO CODE (DNR/DNI). * 09/27/17 - Spoke with son, he is interested in comfort measures and hospice support. Left messages for 2 daughters. Awaiting family decision regarding continued aggressive care vs transition to comfort measures with hospice support. * Emailed list of local hospice organizations to Dillon (son) and Farhana (dtr) per their request. * Discussed with case management. * SYMPTOMS: Dysphagia: has PEG tube. Does not appear feeding has been started. Weakness: due to possible mets lung cancer and recent large left MCA infarct. Unlikely she will be able to rehab. She remains unresponsive. Tachypnea: rate 28. Family has elected NO CODE (DNR/DNI), considering transition to comfort. * Palliative care will continue to follow to assist with symptom management, communication and further clarification of medical treatment goals as needed. . Attestation To help prompt me to consider important information that might be impacting today's encounter and assessment, information from prior notes written by myself or my colleagues may have been "brought forward" into today's note. My signature on this note, however, is an attestation that I personally performed the exam, history, and/or decision-making noted today, and, unless otherwise indicated, the interactions with patient, family, and staff as well as the review of records all occurred today. I also attest that the listed assessment and stated plan reflect my best clinical judgment today based on the combination of historical information, prior notes, and today's exam/ interactions. When time spent is documented, it refers only to time spent today by the signer, or if indicated, combined time spent today by collaborating physician/nurse practitioner. Latisha Gómez Sep 27, 2017 12:13
--- NOTE | 2017-09-27 15:17 | HHI.PR ---
Subjective Remarks Pt remains unresponsive. Pt is NOT eating. Objective Vitals Vital Signs Date Time Temp Pulse Resp B/P (MAP) Pulse Ox O2 Delivery O2 Flow Rate FiO2 09/27/17 11:37 98.0 65 22 193/86 (121) 94 09/27/17 07:57 97.9 74 22 192/83 (119) 92 09/27/17 04:00 98.7 75 28 190/82 (118) 94 09/27/17 00:00 100.3 86 24 176/84 (114) 94 09/26/17 20:00 99.8 96 22 198/81 (120) 95 09/26/17 19:00 Room Air 21 09/26/17 16:00 98.2 74 26 178/76 (110) 91 Result Diagram: 09/25/17 0749 09/26/17 0642 Imaging Last Impressions Head CT 09/24/17 0600 Signed Impressions: Service Date/Time: Sunday, September 24, 2017 04:12 - CONCLUSION: Continued maturation of a left frontoparietal nonhemorrhagic infarct. Oseas Livingston Jr., MD Abdomen X-Ray 09/24/17 0000 Signed Impressions: Service Date/Time: Sunday, September 24, 2017 11:43 - CONCLUSION: Feeding tube placement with tip projected over the mid stomach. Brown Pinedo MD Chest X-Ray 09/23/17 0000 Signed Impressions: Service Date/Time: Saturday, September 23, 2017 23:26 - CONCLUSION: No acute disease. Oseas Livingston Jr., MD Carotid Artery Ultrasound 09/21/17 0000 Signed Impressions: Service Date/Time: Thursday, September 21, 2017 09:37 - CONCLUSION: Limited exam by patient habitus. Negative for hemodynamically significant stenosis. Alin Richard MD FACR Head Magnetic Resonance Angiography 09/20/17 0000 Signed Impressions: Service Date/Time: Wednesday, September 20, 2017 16:00 - CONCLUSION: 1. Distal left ICA occlusion extending intracranially and involving the left anterior and middle cerebral arteries. 2. Intact right cerebral and vertebrobasilar circulation. Pedro Reveles MD Brain MRI 09/20/17 0000 Signed Impressions: Service Date/Time: Wednesday, September 20, 2017 16:00 - CONCLUSION: 1. Large evolving infarct in the anterior and middle cerebral artery distributions as a consequence of distal left ICA occlusion extending into the anterior and middle cerebral arteries. 2. No evidence of associated hemorrhage or significant mass effect. 3. Unremarkable right cerebral hemisphere, brainstem or cerebellum. Pedro Reveles MD Objective Remarks General: NAD, opens eyes but nonverbal Chest: Increased respiratory effort, Cardiac: Regular Abd: +BS, soft nondistended Ext: Right side hemiparesis A/P Problem List: (1) Left acute arterial ischemic stroke, MCA (middle cerebral artery) ICD Codes: I63.512 - Cerebral infarction due to unspecified occlusion or stenosis of left middle cerebral artery Status: Acute Plan: - Pt is a 77 y/o female wth hypertension and hx of DVT who was found laying on the floor unresponsive at home with facial asymmetry and minimally arousable on 09/20/17. She was last known to be okay the night before presentation. Patient was found to have right-sided weakness. - Head CT (09/20) --> Left MCA territory ischemic infarct which appeared to be subacute in nature. - Pt was admitted to ICU under the care of the intensivists and neurology - MRI Brain (09/20) --> Large evolving infarct in the anterior and middle cerebral artery distributions as a consequence of distal left ICA occlusion extending into the anterior and middle cerebral arteries. No evidence of associated hemorrhage or significant mass effect. Unremarkable right cerebral hemisphere, brainstem or cerebellum. - MRA Brain (09/20) --> Distal left ICA occlusion extending intracranially and involving the left anterior and middle cerebral arteries. Intact right cerebral and vertebrobasilar circulation. - Repeat Head CT (09/24) --> Again seen is a large area of low density involving the left frontal and parietal lobes. This is consistent with a nonhemorrhagic infarction. The area of infarction is stable from the prior study. It shows continued decrease in density. There is some mass effect with 5 mm of [id number] midline shift. There is effacement of the left lateral ventricle. Ventricles are otherwise normal in size. Air fluid level seen involving the left maxillary sinus. Remaining paranasal sinuses and mastoid air cells are clear. - Pt with continued right hemiparesis and is nonverbal secondary to her distal left ICA occlusion extending into the anterior and middle cerebral arteries - She had been on TF - PEG tube placed on 09/26 - Dietary recommending Jevity 1.5 with goal rate of 50mL/hr - Pt is on permissive HTN and lower when ok with neurology - She is currently on asa and DVT prophylaxis with Lovenox. - Pt was on Eliquis prior to admission for DVT. Resume when ok with neurology. - Cont. PT/OT/ST - Pt with overall poor prognosis especially in the setting of newly found lung masses and liver mass, concerning for metastatic cancer. - Appreciate palliative care assistance as there seems to be some family dynamic issues and pt has no legal documentation for POA/HCS. - now DNR - family/Palliative Service discussing hospice - supportive care (2) Lung mass ICD Codes: R91.8 - Other nonspecific abnormal finding of lung field Status: Acute Plan: - Pt had been seen by Dr. Norris recently as an outpt for evaluation of unprovoked DVT. - She was sent for a CT which revealed lung masses, a 3.9 x 2.5cm mass in medial posterior left lower lung with 2.2 cm posterior mediastinal lymph node suspicious for lung cancer, multiple tiny scattered lung nodules, and a 2.2 cm liver lesion suspicious for mets lung cancer. - Pt had been planned for evaluation with a PET/CT scan but ended up hospitalized with CVA. (3) Rhabdomyolysis ICD Codes: M62.82 - Rhabdomyolysis Status: Acute Plan: - Cont IVF (4) HTN (hypertension) ICD Codes: I10 - Essential (primary) hypertension Status: Chronic Plan: - Pt is on permissive HTN until ok with neurology to lower - Vasotec PRN (5) Hx of deep venous thrombosis ICD Codes: Z86.718 - Personal history of other venous thrombosis and embolism Status: Chronic Alex March DO Sep 27, 2017 15:17
[2017-09-27 16:10] VITALS: BP 192/83; PULSE 71; RESP 22; TEMP 98.4; O2SAT 94
[2017-09-27 20:00] VITALS: BP 194/86; PULSE 71; RESP 19; TEMP 98.8; O2SAT 94
[2017-09-27] MEDS: FAMOTIDINE 20 MG TAB PO SCH (21:14)
[2017-09-27] MEDS: LATANOPROST 0.005% OPHT SOLN 2.5 ML BTL EACH EYE SCH (21:15)
[2017-09-27] MEDS: CHLORHEXIDINE GLUCONATE 2 % 1 PACK (2 CLOTHS) TOP SCH (21:15)
[2017-09-28] VITALS: BP 192/88; PULSE 69; RESP 24; TEMP 98.9; O2SAT 95
[2017-09-28 04:00] VITALS: BP 174/76; PULSE 66; RESP 24; TEMP 98.9; O2SAT 95
[2017-09-28 07:38] VITALS: BP 186/83; PULSE 72; RESP 24; TEMP 98.6; O2SAT 93
[2017-09-28] MEDS ORDERED: BISACODYL 10 MG SUPP RECTAL ONE (08:30)
[2017-09-28] MEDS: SODIUM CHLORIDE 0.9% FLUSH 10 ML FLUSH IV FLUSH SCH (08:36)
[2017-09-28] MEDS: ASPIRIN 325 MG TAB PO SCH (08:36)
[2017-09-28] MEDS: FAMOTIDINE 20 MG TAB PO SCH ×2 (08:36→20:24)
[2017-09-28] MEDS: BRIMONIDINE TARTRATE 0.2% OPHT SOLN 5 ML BTL EACH EYE SCH ×2 (08:37→20:24)
[2017-09-28] MEDS: DORZOLAMIDE/TIMOLOL OPTH SOLN 10 ML BTL EACH EYE SCH ×2 (08:37→20:24)
[2017-09-28] MEDS: SODIUM CHLOR 0.45% 1000 ML INJ 1,000 ML IV SCH (08:40)
[2017-09-28 11:39] VITALS: BP 183/83; PULSE 66; RESP 22; TEMP 98.7; O2SAT 93
--- NOTE | 2017-09-28 12:44 | HHI.HCPN ---
Email from Farhana quiles to request [facility] and possible [place] care center placement. Called to speak with daughterIzzy to provide medical update and review prior conversations with her siblings on 09/27/17. I explained that her siblings have elected to transition to comfort measures with hospice support. She asks "are we really at a point that it is time for hospice?" I reviewed that she is not likely to rehabilitate from large stroke at this point as she has remained non- verbal, minimally responsive, tachypneic and has probable mets lung cancer to liver that she will not be a candidate for given her current status. She verbalizes understanding. Family would like care center placement in [place] if possible. Daughter Izzy (lives local) may want to consider bringing patient home from care center if possible. I have emailed Farhana tatum and Dillon to update on this conversation and plan to proceed with hospice consult per their request. Hospice consulted. . Latisha Gómez Sep 28, 2017 12:44
[2017-09-28] MEDS ORDERED: MORPHINE SULFATE 2 MG/ML SYRINGE IV PUSH PRN (13:15)
[2017-09-28] MEDS ORDERED: MORP10IN9 IV PUSH (13:32)
--- NOTE | 2017-09-28 13:35 | HHI.DCPOC ---
Discharge Care Plan Diagnosis: (1) CVA (cerebral vascular accident) (2) Lung mass Goals to Promote Your Health * To prevent worsening of your condition and complications * To maintain your health at the optimal level Directions to Meet Your Goals Take your medications as prescribed Follow your dietary instruction Follow activity as directed Keep your appointments as scheduled Take your immunizations and boosters as scheduled If your symptoms worsen call your PCP, if no PCP go to Urgent Care Center or Emergency Room Smoking is Dangerous to Your Health. Avoid second hand smoke Call the 24-hour hour crisis hotline for domestic abuse at Destini Hernandez Sep 28, 2017 13:35
--- NOTE | 2017-09-28 13:40 | HHI.DS ---
Discharge Summary Admission Date Sep 20, 2017 at 10:34 Discharge Date: Sep 28, 2017 Admitting Diagnosis Subacute CVA/rhabdomyolysis (1) Left acute arterial ischemic stroke, MCA (middle cerebral artery) ICD Codes: I63.512 - Cerebral infarction due to unspecified occlusion or stenosis of left middle cerebral artery Status: Acute (2) Lung mass ICD Codes: R91.8 - Other nonspecific abnormal finding of lung field Status: Acute (3) Rhabdomyolysis ICD Codes: M62.82 - Rhabdomyolysis Status: Acute (4) HTN (hypertension) ICD Codes: I10 - Essential (primary) hypertension Status: Chronic (5) Hx of deep venous thrombosis ICD Codes: Z86.718 - Personal history of other venous thrombosis and embolism Status: Chronic Consultants Dr. Mcgregor, Neurology Dr. Metzger, GI Dr. Hargrove, Palliative care Dr. Longoria, proof tester Procedures PEG tube placement 09/26 Brief History 77-year-old female with a medical history significant for hypertension, DVT who was found laying on the floor unresponsive at home with facial asymmetry though was minimally arousable. She was last known to be okay the night before presentation. Patient was found to have right-sided weakness. Head CT done in the ER revealed left MCA territory ischemic infarct which appeared to be subacute in nature. Patient was accepted for admission by critical care medicine service. She was not felt to be a candidate for TPA or IR intervention due to unknown time of onset of symptoms. When I evaluated patient in the ER she was laying in the ER stretcher, opening her eyes to command however nonverbal. CBC/BMP: 09/25/17 0749 09/26/17 0642 Significant Findings Laboratory Tests Test 09/26/17 06:42 Blood Urea Nitrogen 26 MG/DL (7-18) Sodium Level 150 MEQ/L (136-145) Potassium Level 3.4 MEQ/L (3.5-5.1) Chloride Level 118 MEQ/L (98-107) Imaging Last Impressions Head CT 09/24/17 0600 Signed Impressions: Service Date/Time: Sunday, September 24, 2017 04:12 - CONCLUSION: Continued maturation of a left frontoparietal nonhemorrhagic infarct. Oseas Livingston Jr., MD Abdomen X-Ray 09/24/17 0000 Signed Impressions: Service Date/Time: Sunday, September 24, 2017 11:43 - CONCLUSION: Feeding tube placement with tip projected over the mid stomach. Brown Pinedo MD Chest X-Ray 09/23/17 0000 Signed Impressions: Service Date/Time: Saturday, September 23, 2017 23:26 - CONCLUSION: No acute disease. Oseas Livingston Jr., MD Carotid Artery Ultrasound 09/21/17 0000 Signed Impressions: Service Date/Time: Thursday, September 21, 2017 09:37 - CONCLUSION: Limited exam by patient habitus. Negative for hemodynamically significant stenosis. Alin Richard MD FACR Head Magnetic Resonance Angiography 09/20/17 0000 Signed Impressions: Service Date/Time: Wednesday, September 20, 2017 16:00 - CONCLUSION: 1. Distal left ICA occlusion extending intracranially and involving the left anterior and middle cerebral arteries. 2. Intact right cerebral and vertebrobasilar circulation. Pedro Reveles MD Brain MRI 09/20/17 0000 Signed Impressions: Service Date/Time: Wednesday, September 20, 2017 16:00 - CONCLUSION: 1. Large evolving infarct in the anterior and middle cerebral artery distributions as a consequence of distal left ICA occlusion extending into the anterior and middle cerebral arteries. 2. No evidence of associated hemorrhage or significant mass effect. 3. Unremarkable right cerebral hemisphere, brainstem or cerebellum. Pedro Reveles MD PE at Discharge General: nonresponsive Chest: Tachypneic and Increased respiratory effort Cardiac: Regular Abd: +BS, soft nondistended Ext: Right side hemiparesis Hospital Course Left acute arterial ischemic stroke, MCA (middle cerebral artery) - Pt is a 77 y/o female wth hypertension and hx of DVT who was found laying on the floor unresponsive at home with facial asymmetry and minimally arousable on 09/20/17. She was last known to be okay the night before presentation. Patient was found to have right-sided weakness. - Head CT (09/20) --> Left MCA territory ischemic infarct which appeared to be subacute in nature. - Pt was admitted to ICU under the care of the intensivists and neurology - MRI Brain (09/20) --> Large evolving infarct in the anterior and middle cerebral artery distributions as a consequence of distal left ICA occlusion extending into the anterior and middle cerebral arteries. No evidence of associated hemorrhage or significant mass effect. Unremarkable right cerebral hemisphere, brainstem or cerebellum. - MRA Brain (09/20) --> Distal left ICA occlusion extending intracranially and involving the left anterior and middle cerebral arteries. Intact right cerebral and vertebrobasilar circulation. - Repeat Head CT (09/24) --> Again seen is a large area of low density involving the left frontal and parietal lobes. This is consistent with a nonhemorrhagic infarction. The area of infarction is stable from the prior study. It shows continued decrease in density. There is some mass effect with 5 mm of [id number] midline shift. There is effacement of the left lateral ventricle. Ventricles are otherwise normal in size. Air fluid level seen involving the left maxillary sinus. Remaining paranasal sinuses and mastoid air cells are clear. - Pt with continued right hemiparesis and is nonverbal secondary to her distal left ICA occlusion extending into the anterior and middle cerebral arteries - She had been on TF - PEG tube placed on 09/26 - Dietary recommending Jevity 1.5 with goal rate of 50mL/hr - Pt is on permissive HTN and lower when ok with neurology - She is currently on asa and DVT prophylaxis with Lovenox. - Pt was on Eliquis prior to admission for DVT. Resume when ok with neurology. - Cont. PT/OT/ST - Pt with overall poor prognosis especially in the setting of newly found lung masses and liver mass, concerning for metastatic cancer. - Appreciate palliative care assistance as there seems to be some family dynamic issues and pt has no legal documentation for POA/HCS. - now DNR - family/ has requested patient be DC to hospice care center - supportive care Lung mass - Pt had been seen by Dr. Norris recently as an outpt for evaluation of unprovoked DVT. - She was sent for a CT which revealed lung masses, a 3.9 x 2.5cm mass in medial posterior left lower lung with 2.2 cm posterior mediastinal lymph node suspicious for lung cancer, multiple tiny scattered lung nodules, and a 2.2 cm liver lesion suspicious for mets lung cancer. - Pt had been planned for evaluation with a PET/CT scan but ended up hospitalized with CVA. Rhabdomyolysis - IVF HTN (hypertension) - Pt is on permissive HTN until ok with neurology to lower - Vasotec PRN Hx of deep venous thrombosis Chronic Pt Condition on Discharge: Deteriorating Discharge Disposition: Hospice/Med Facility Discharge Instructions Activities you can perform: Continue Bedrest Additional Information further medications, diet and follow up per Hospice Destini Hernandez Sep 28, 2017 13:40
[2017-09-28 16:13] VITALS: BP 183/81; PULSE 77; RESP 22; TEMP 97.6; O2SAT 95
[2017-09-28] MEDS: ENALAPRILAT 1.25 MG/ML VIAL IV PUSH PRN (20:20)
[2017-09-28] MEDS: LATANOPROST 0.005% OPHT SOLN 2.5 ML BTL EACH EYE SCH (20:24)
[2017-09-28 20:54] VITALS: BP 214/88; PULSE 79; RESP 20; TEMP 99.6; O2SAT 96
== END 2017-09-28 21:12 | disposition hospice, inpatient (51) | DRG 64 ==
LOC: NEPE 08:04 → NEDA 10:34 → N03A 14:40 → N05A 09-24 15:27
PROVIDERS: ADMIT Hospitalist; ATTEND Hospitalist
PROC: 0DJ08ZZ Inspection of Upper Intestinal Tract, Via Natural or Artificial Opening Endoscopic (ICD-10-PCS; principal; 2017-09-26 12:54)
PROC: 0DH63UZ Insertion of Feeding Device into Stomach, Percutaneous Approach (ICD-10-PCS; 2017-09-26 12:54)
DX: I63.512 Cerebral infarction due to unspecified occlusion or stenosis of left middle cerebral artery (principal); G93.40 Encephalopathy, unspecified; G93.6 Cerebral edema; G81.91 Hemiplegia, unspecified affecting right dominant side; R13.10 Dysphagia, unspecified; M62.82 Rhabdomyolysis; C34.32 Malignant neoplasm of lower lobe, left bronchus or lung; C78.7 Secondary malignant neoplasm of liver and intrahepatic bile duct; R16.0 Hepatomegaly, not elsewhere classified; I10 Essential (primary) hypertension; I65.22 Occlusion and stenosis of left carotid artery; M81.0 Age-related osteoporosis without current pathological fracture; R91.8 Other nonspecific abnormal finding of lung field; R06.82 Tachypnea, not elsewhere classified; Z87.891 Personal history of nicotine dependence; Z86.718 Personal history of other venous thrombosis and embolism; Z86.73 Personal history of transient ischemic attack (TIA), and cerebral infarction without residual deficits; Z79.01 Long term (current) use of anticoagulants; Z51.5 Encounter for palliative care; Z66 Do not resuscitate
CPT/HCPCS: 51702; 70450; 70544; 70551; 71045; 74018; 80048; 80053; 80307; 81001; 82140; 82550; 82552; 83605; 84100; 84443; 84484; 85025; 85610; 85730; 87040; 87086; 87641; 93005; 93306; 93880; 94640; 94664; 95819; 96360; J0360; J1650; J2270; J7030; J7040